=== PATIENT | female | born 1950 | race Caucasian/White ===

== ENCOUNTER 2017-01-27 11:46 | Emergency (ER) | payer MEDICARE ==
--- NOTE | 2017-01-27 13:09 | RAD ---
HISTORY: Low back pain COMPARISONS: None TECHNIQUE: Multiple contiguous axial CT scans were obtained of the lumbar spine without intravenous contrast, with coronal and sagittal multiplanar reformations. FINDINGS: SPINAL CANAL: Evaluation of the central canal is limited on CT technique; however, there is no obvious canalicular mass or epidural hemorrhage. ALIGNMENT: The alignment is normal. VERTEBRAL BODIES: There is mild anterolateral marginal osteophyte formation. There are sclerotic reactive endplate changes at L5-S1 JOINTS: There is facet hypertrophic change most pronounced at L4-L5 and L5-S1 MUSCULATURE: Unremarkable INTERVERTEBRAL DISCS: There is diffuse loss of intervertebral disc height throughout the spine. Vacuum phenomenon is noted at L5-S1 AXIAL IMAGES: T12-L1: There is no osseous neural foraminal narrowing or central canal stenosis. L1-L2: There is no osseous neural foraminal narrowing or central canal stenosis. L2-L3: There is no osseous neural foraminal narrowing or central canal stenosis. L3-L4: There is no osseous neural foraminal narrowing or central canal stenosis. L4-L5: There is no osseous neural foraminal narrowing or central canal stenosis. L5-S1: There is vacuum phenomenon within a broad-based central and right paracentral disc extrusion measuring approximately 1.3 cm in craniocaudal dimension and 0.6 cm in depth. There is moderate bilateral neural foraminal narrowing. There is no osseous central canal stenosis. SOFT TISSUES: The visualized soft tissues of the abdomen are unremarkable. OTHER: None IMPRESSION: DEGENERATIVE DISC DISEASE WITH A RIGHT-SIDED DISC EXTRUSION AT L5-S1. THERE IS NEURAL FORAMINAL NARROWING AT L5-S1. THERE IS NO OSSEOUS CENTRAL CANAL STENOSIS.
[2017-01-27 13:20] LABS: Hematocrit 37 % (35-47); Hemoglobin 12.7 g/dl (12.0-16.0); Mean Corpuscular HGB Conc 34 g/dl (31-36); Mean Corpuscular Hemoglobin 32 pg (27-31); Mean Corpuscular Volume 93 fL (80-97); Mean Platelet Volume 8 um3 (7.4-10.4); Red Blood Count 3.97 10^6/ul (4.0-5.4); Red Cell Distribution Width 14 % (10.5-15); White Blood Count 4.6 10^3/ul (3.5-10.8)
[2017-01-27 13:22] LABS: Add Diff/Slide Review? Slide Review Added; Comments Flag Yes
[2017-01-27 13:31] LABS: Urine Bacteria 1+ (Absent); Urine Bilirubin Negative (Negative); Urine Glucose Negative (Negative); Urine Nitrite Negative (Negative)
[2017-01-27 13:33] LABS: ALT 80 U/L (7-52); Albumin 4.1 g/dL (3.2-5.2); Alkaline Phosphatase 165 U/L (34-104); BUN/Creatinine Ratio 19.3 (8-20); Blood Urea Nitrogen 11 mg/dL (6-24); CO2 Carbon Dioxide 22 mmol/L (22-32); Calcium 9.4 mg/dL (8.6-10.3); Chloride 100 mmol/L (101-111); EGFR African American 135.7 (>60); EGFR Non-African American 105.5 (>60); Globulin 3.3 g/dL (2-4); Glucose 99 mg/dL (70-100); Sodium 133 mmol/L (133-145); Total Protein 7.4 g/dL (6.4-8.9)
[2017-01-27] MEDS ORDERED: Ketorolac INJ* 30 MG/ML 1 ML VIAL IM ONE (13:43)
[2017-01-27] MEDS ORDERED: oxyCODONE/Acetamin 5/325 MG* TAB PO ONE (14:32)
[2017-01-27 14:34] LABS: TSH (Thyroid Stimulating Horm) 2.26 mcIU/mL (0.34-5.60)
[2017-01-27 14:37] LABS: Anion Gap 11 mmol/L (2-11)
[2017-01-27 15:16] LABS: Immature Granulocytes 8 % (0-9); Metamyelocytes % 3 % (0-2); Myelocytes % 2 % (0-1); Neutrophil % 60 % (38-83); RBC Morphology Normal (Normal)
--- NOTE | 2017-01-27 15:19 | RAD ---
HISTORY: Back pain COMPARISONS: None TECHNIQUE: Multiple contiguous axial CT scans of the chest were obtained without intravenous contrast. Coronal and sagittal multiplanar reformations are also submitted for review. FINDINGS: The study is limited by the lack of intravenous contrast. This limits evaluation of the solid organs and vasculature. NECK AND THYROID: The lower neck and thyroid are unremarkable. CHEST WALL: There is no lower cervical, axillary, or supraclavicular lymphadenopathy by size criteria. HEART AND PERICARDIUM: The heart is unremarkable. There is a trace pericardial effusion. AORTA AND PULMONARY VASCULATURE: The aorta and pulmonary vasculature are normal. MEDIASTINUM: There is no mediastinal lymphadenopathy by size criteria. FANNY: There is no hilar lymphadenopathy by size criteria. AIRWAY AND ESOPHAGUS: The airway is unremarkable, without endobronchial filling defect. The esophagus is grossly normal. LUNG PARENCHYMA: There is centrilobular edematous change. There is an irregular nodule of the right lower lobe measuring 2.5 x 2.5 x 2.9 cm in size. PLEURA: No pleural abnormalities are noted. UPPER ABDOMEN: The patient is status post cholecystectomy. There is no appreciable adrenal mass. BONES AND SOFT TISSUES: Mild degenerative changes are noted OTHER: None. IMPRESSION: 1. 2.9 CM NODULE OF THE RIGHT LOWER LOBE. THE IMAGING APPEARANCE IS CONCERNING FOR NEOPLASM. RECOMMEND FURTHER EVALUATION WITH PET/CT AND/OR CONSIDERATION OF TISSUE SAMPLING. 2. EMPHYSEMA. 3. TRACE PERICARDIAL EFFUSION
[2017-01-27 16:07] VITALS: BP 116/55
--- NOTE | 2017-01-27 22:06 | ED ---
Luis Faria Gabriel, scribed for Mckenna Aguirre MD on 01/27/17 at 1221 . Back Pain - HPI Summary HPI Summary: This patient is a 66 year old F presenting to [facility] accompanied by with a chief complaint of lower back pain since 10 days ago. The patient rates the pain 8/10 in severity and radiating down into her thighs and groin. Patient reports CP (2 days ago) in epigastric region and difficulty lifting her legs due to pain in groin. Patient denies fever, chills, CARREON, vision changes, ear pain , neck pain, ABD pain, BM troubles, urinary problems, weakness, numbness, anxiety and depression. - History of Current Complaint Chief Complaint: EDBackInjuryPain Stated Complaint: LOWER BACK PAIN Time Seen by Provider: 01/27/17 12:02 Hx Obtained From: Patient Onset/Duration: Lasting Days - 10, Still Present Onset/Duration: Still Present Timing: Constant Back Pain Location: Is Diffuse Severity Initially: Moderate Severity Currently: Moderate Pain Intensity: 8 Pain Scale Used: 0-10 Numeric Associated Signs And Symptoms: Positive: Negative - fever, chills, CARREON, vision changes, ear pain, neck pain, ABD pain, BM troubles, urinary problems, weakness , numbness, anxiety and depression., Other - CP (2 days ago) in epigastric region and difficulty lifting her legs due to pain in groin - Allergies/Home Medications Allergies/Adverse Reactions: Allergies Allergy/AdvReac Type Severity Reaction Status Date / Time Iodine Allergy Unknown Verified 01/27/17 11:51 Reaction Details Sulfa Antibiotics Allergy Unknown Verified 01/27/17 11:51 Reaction Details PMH/Surg Hx/FS Hx/Imm Hx Previously Healthy: No Cardiovascular History: Reports: Hx Atrial Fibrillation, Hx Supraventricular Ventricular Tachycardia Denies: Hx Angina Respiratory History: Denies: Hx Asthma GI History: Reports: Hx Gall Bladder Disease - cholecystectomy Sensory History: Reports: Hx Contacts or Glasses Opthamlomology History: Reports: Hx Contacts or Glasses - Surgical History Surgery Procedure, Year, and Place: CHOLECYSTECTOMY Infectious Disease History: No Infectious Disease History: Denies: Traveled Outside the [place] in Last 30 Days - Family History Known Family History: Positive: Respiratory Disease - father - emphysema, Other - mother - cva - Social History Alcohol Use: Occasionally Alcohol Amount: about 3 times a week Hx Substance Use: No Substance Use Type: Reports: None Hx Tobacco Use: Yes Smoking Status (MU): Light Every Day Tobacco Smoker Type: Cigarettes Length of Time of Smoking/Using Tobacco: 45 years Have You Smoked in the Last Year: Yes Review of Systems Negative: Fever, Chills Eyes: Negative - vision changes Negative: Blurred Vision Negative: Ear Ache Positive: Chest Pain - 2 dahys prior that resolved Gastrointestinal: Negative - BM trouble Negative: Abdominal Pain Negative: dysuria, hematuria Musculoskeletal: Negative - neck pain Positive: Other - back pain Negative: Headache, Weakness, Numbness Negative: Anxious, Depressed All Other Systems Reviewed And Are Negative: No Physical Exam - Summary Physical Exam Summary: Appearance: Alert, conversive, nontoxic appearing Skin: Warm, dry, no mottling, no rashes, no contusions HEENT: EOMI, PERRL, moist mucous membranes Neck: supple Supraclavicular node on the right side it is hard and non-mobile Spine: No midline tenderness, step offs, or ecchymosis Respiratory: Clear to auscultation, breath sounds present, no rales, no rhonchi , no wheezes Cardiovascular: RRR, pulses are symmetrical in both lower and upper extremities Abdomen: Soft, non-tender Bowel Sounds: Present Musculoskeletal: No CVA tenderness, no obvious deformity, moving all extremities in a grossly normal manner Neurological: A&Ox3, CN II-XII Intact, moving all extremities symmetrically Psychiatric: Normal affect and mood Triage Information Reviewed: Yes Vital Signs On Initial Exam: Initial Vitals Temp Pulse Resp BP Pulse Ox 99.0 F 77 16 128/63 97 01/27/17 11:51 01/27/17 11:51 01/27/17 11:51 01/27/17 11:51 01/27/17 11:51 Vital Signs Reviewed: Yes - Milena Coma Scale Coma Scale Total: 14 Diagnostics - Vital Signs Vital Signs Temp Pulse Resp BP Pulse Ox 01/27/17 11:51 99.0 F 77 16 128/63 97 - Laboratory Lab Results: Lab Results 01/27/17 01/27/17 01/27/17 Range/Units 13:05 13:05 13:05 WBC 4.6 (3.5-10.8) 10^3/ul RBC 3.97 L (4.0-5.4) 10^6/ul Hgb 12.7 (12.0-16.0) g/dl Hct 37 (35-47) % MCV 93 (80-97) fL MCH 32 H (27-31) pg MCHC 34 (31-36) g/dl RDW 14 (10.5-15) % Plt Count 222 (150-450) 10^3/ul MPV 8 (7.4-10.4) um3 Immature Gran % (Auto) 8 (0-9) % Neut % (Auto) 75.6 (38-83) % Lymph % (Auto) 15.7 L (25-47) % [place] % (Auto) 7.3 (1-9) % Eos % (Auto) 0.3 (0-6) % Baso % (Auto) 1.1 (0-2) % Absolute Neuts (auto) 3.5 (1.5-7.7) 10^3/ul Absolute Lymphs (auto) 0.7 L (1.0-4.8) 10^3/ul Absolute Monos (auto) 0.3 (0-0.8) 10^3/ul Absolute Eos (auto) 0 (0-0.6) 10^3/ul Absolute Basos (auto) 0.1 (0-0.2) 10^3/ul Absolute Nucleated RBC 0.02 10^3/ul Neutrophils % 60 (38-83) % Band Neutrophils % 3 (0-8) % Lymphocytes % 21 L (25-47) % Monocytes % 9 (0-13) % Basophils % 2 (0-2) % Metamyelocytes % 3 H (0-2) % Myelocytes % 2 H (0-1) % Nucleated RBC % 0.5 Normal RBC Morphology Normal (Normal) Sodium 133 (133-145) mmol/L Potassium TNP Chloride 100 L (101-111) mmol/L Carbon Dioxide 22 (22-32) mmol/L Anion Gap 11 (2-11) mmol/L BUN 11 (6-24) mg/dL Creatinine 0.57 (0.51-0.95) mg/dL Est GFR ( Amer) 135.7 (>60) Est GFR (Non-Af Amer) 105.5 (>60) BUN/Creatinine Ratio 19.3 (8-20) Glucose 99 (70-100) mg/dL Calcium 9.4 (8.6-10.3) mg/dL Magnesium TNP Total Bilirubin 0.70 (0.2-1.0) mg/dL AST TNP ALT 80 H (7-52) U/L Alkaline Phosphatase 165 H (34-104) U/L Total Protein 7.4 (6.4-8.9) g/dL Albumin 4.1 (3.2-5.2) g/dL Globulin 3.3 (2-4) g/dL Albumin/Globulin Ratio 1.2 (1-3) TSH 2.26 (0.34-5.60) mcIU/mL Urine Color Yellow Urine Appearance Clear Urine pH 5.0 (5-9) Ur Specific [place] 1.006 L (1.010-1.030) Urine Protein Negative (Negative) Urine Ketones Trace H (Negative) Urine Blood 1+ H (Negative) Urine Nitrate Negative (Negative) Urine Bilirubin Negative (Negative) Urine Urobilinogen Negative (Negative) Ur Leukocyte Esterase Negative (Negative) Urine WBC (Auto) Trace(0-5/hpf) (Absent) Urine RBC (Auto) Trace(0-2/hpf) (Absent) Ur Squamous Epith Cells Present H (Absent) Urine Bacteria 1+ H (Absent) Urine Glucose Negative (Negative) Result Diagrams: 01/27/17 13:05 01/27/17 13:05 Lab Statement: Any lab studies that have been ordered have been reviewed, and results considered in the medical decision making process. - CT CT L-spine CT Interpretation Completed By: Radiologist - DEGENERATIVE DISC DISEASE WITH A RIGHT-SIDED DISC EXTRUSION AT L5-S1. THERE IS NEURAL FORAMINAL NARROWING AT L5- S1. THERE IS NO OSSEOUS CENTRAL CANAL STENOSIS. ED physician has reviewed this radiology report and agrees. CT Chest CT Interpretation Completed By: Radiologist - 1. 2.9 CM NODULE OF THE RIGHT LOWER LOBE. THE IMAGING APPEARANCE IS CONCERNING FOR NEOPLASM. RECOMMEND FURTHER EVALUATION WITH PET/CT AND/OR CONSIDERATION OF TISSUE SAMPLING. 2. EMPHYSEMA. 3. TRACE PERICARDIAL EFFUSION ED physician has reviewed this report and agrees. Re-Evaluation - Re-Evaluation First Eval Re-Evaluation Time: 14:24 Change: Unchanged - Pt is requesting something stronger than oxycodone for her pain. I told her I discussed her care with her PCP and that they agreed to manage her pain on outpatient basis in their office. I also recommended continuing current pain mediation but reducing the Tylenol intake due to high LFTs Back Pain Course/Dx - Course Assessment/Plan: This patient is a 66 year old F presenting to [facility] accompanied by with a chief complaint of lower back pain since [address] L-spine reveals, per radiologist, DEGENERATIVE DISC DISEASE WITH A RIGHT-SIDED DISC EXTRUSION AT L5-S1. THERE IS NEURAL. FORAMINAL NARROWING AT L5 -S1. THERE IS NO OSSEOUS CENTRAL CANAL STENOSIS. Patient was seen for AFIB around hospital for special care and was admitted. Her PCP has given her oxycodone and Tylenol for pain. Her PCP was worried about possible cancer do to the chronic smoking. We reviewed all her lab results and will discharge her home after her Chest CT. Chest CT reveals 1. 2.9 CM NODULE OF THE RIGHT LOWER LOBE. THE IMAGING APPEARANCE IS CONCERNING FOR. NEOPLASM. RECOMMEND FURTHER EVALUATION WITH PET/CT AND/OR CONSIDERATION OF TISSUE. SAMPLING. 2. EMPHYSEMA. 3. TRACE PERICARDIAL EFFUSION. Test results with no significant abnormalities except for an elevated LFTs. There is a chance the amount of Tylenol she is taking for pain is causing this. It was recommended she lower her intake of Tylenol. In the ED course the patient was given Percocet and Toradol for pain. We discussed patient care with Dr. Broussard, the patients PCP and they recommend we do the CT Chest and that they will address her chronic pain in her office. Patient will be discharged with follow up from Dr. Broussard. The patient is agreeable with this plan. - Diagnoses Provider Diagnoses: Back pain, Lung nodule - Provider Notifications Discussed Care Of Patient With: Carleen Broussard Time Discussed With Above Provider: 13:52 Instructed by Provider To: Other - We discussed patient care with Dr. Broussard, the patients PCP and they recommend we do the CT Chest. They also stated that they will address her chronic pain during her next appointment. Discharge - Discharge Plan Condition: Stable Disposition: HOME Patient Education Materials: Pulmonary Nodules (ED), Back Pain (ED) Referrals: Carleen Broussard MD [Primary Care Provider] - Additional Instructions: Please follow up with Dr. Broussard. Please call for an appointment. Take pain medications as previously instructed. Please decrease the amount of tylenol you are taking as your LFTs were slightly elevated. REturn if worse or any new symptoms. The CT showed a lung nodule to the right lower lobe. You need to discuss with Dr. Broussard for further evaluation and studies. The documentation as recorded by the Luis galvan Gabriel accurately reflects the service I personally performed and the decisions made by me, Mckenna Aguirre MD.
== END 2017-01-27 16:07 | disposition home or self-care (01) ==
LOC: ED 11:46
DX: M54.5 Low back pain (principal); R07.9 Chest pain, unspecified; R91.1 Solitary pulmonary nodule; F17.210 Nicotine dependence, cigarettes, uncomplicated; Z86.79 Personal history of other diseases of the circulatory system; Z90.49 Acquired absence of other specified parts of digestive tract; J43.9 Emphysema, unspecified
CPT/HCPCS: 36415; 71250; 72131; 80053; 81003; 81015; 84443; 85025; 87086; 99282; A9270-GY; J1885

== ENCOUNTER 2017-02-26 12:12 | Emergency (ER) | payer MEDICARE ==
[2017-02-26 13:19] LABS: INR 1.23 (0.77-1.02)
[2017-02-26 13:27] LABS: EGFR Non-African American 92.3 (>60)
[2017-02-26 15:27] LABS: Monocytes % 4 % (0-13); Tear Drop Cells 1+
[2017-02-26 15:32] LABS: Hematocrit 28 % (35-47); Hemoglobin 9.4 g/dl (12.0-16.0); Mean Corpuscular HGB Conc 34 g/dl (31-36); Mean Corpuscular Hemoglobin 32 pg (27-31); Mean Corpuscular Volume 94 fL (80-97); Platelet Count 36 10^3/ul (150-450); Red Blood Count 2.94 10^6/ul (4.0-5.4); Red Cell Distribution Width 15 % (10.5-15); White Blood Count 3.9 10^3/ul (3.5-10.8)
[2017-02-26 15:33] LABS: Mean Platelet Volume 9 um3 (7.4-10.4)
[2017-02-26] MEDS ORDERED: NS 0.9% 1000 ML* 2,000 ML IV ONE (17:10)
[2017-02-26 19:28] VITALS: BP 112/58
--- NOTE | 2017-02-27 10:51 | ED ---
Viktoriya Faria Julia, scribed for Mamadou Finnegan MD on 02/26/17 at 1553 . Shortness of Breath - HPI Summary HPI Summary: This patient is a 66 year old F presenting to [facility] accompanied by with a chief complaint fatigue and SOB since this morning. The patient rates the pain 3/10 in severity. reports patient has been weak, and disoriented. Patient had similar symptoms after blood transfusion on 02/24/16. - History of Current Complaint Chief Complaint: EDWeakness Time Seen by Provider: 02/26/17 12:41 Hx Obtained From: Patient, Family/Varnish Inspector Onset/Duration: Lasting Hours Timing: Constant Dyspnea At: Rest - Allergy/Home Medications Allergies/Adverse Reactions: Allergies Allergy/AdvReac Type Severity Reaction Status Date / Time Iodine Allergy Unknown Verified 02/22/17 10:11 Reaction Details Sulfa Antibiotics Allergy Unknown Verified 02/22/17 10:11 Reaction Details Home Medications: Home Medications Dexamethasone TAB* [Decadron TAB*] 4 mg PO DAILY 02/26/17 [History Confirmed 09/06] Enoxaparin(*) [Lovenox(*)] 70 mg SUBCUT DAILY 02/26/17 [History Confirmed ] Ondansetron [Zofran Odt] 4 mg PO Q4H PRN 02/26/17 [History Confirmed 02/26/17] PMH/Surg Hx/FS Hx/Imm Hx Endocrine/Hematology History: Denies: Hx Diabetes Cardiovascular History: Reports: Hx Atrial Fibrillation Denies: Hx Angina, Hx Hypertension, Hx Pacemaker/ICD Respiratory History: Reports: Other Respiratory Problems/Disorders - LUNG CA Denies: Hx Asthma GI History: Reports: Hx Gall Bladder Disease - cholecystectomy History: Denies: Hx Renal Disease Sensory History: Reports: Hx Contacts or Glasses Denies: Hx Hearing Aid Opthamlomology History: Reports: Hx Contacts or Glasses Psychiatric History: Denies: Hx Panic Disorder - Cancer History Cancer Type, 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 01/27/15 - [facility] LINQ RECORDER- @ [facility] W/ DR SMITH - WHICH DOWNLOADS EVERY EVENING/NIGHT BUT IS CHECKING ( W/CARDIOLOGY) MORNING OF MRI TO BE SURE IT DID DO DOWNLOAD. TUBAL LIGATION Infectious Disease History: No Infectious Disease History: Denies: Traveled Outside the [place] in Last 30 Days - Family History Known Family History: Positive: Respiratory Disease - father - emphysema, Other - mother - cva - Social History Alcohol Use: None Alcohol Amount: about 3 times a week Hx Substance Use: No Substance Use Type: Reports: None Hx Tobacco Use: Yes Smoking Status (MU): Former Smoker Type: Cigarettes Length of Time of Smoking/Using Tobacco: 45 years Have You Smoked in the Last Year: Yes Review of Systems Positive: Fatigue Positive: Shortness Of Breath Neurological: Other - disoriented All Other Systems Reviewed And Are Negative: Yes Physical Exam - Summary Physical Exam Summary: Appearance: The patient is well-nourished in no acute distress and in no acute pain. Skin: The skin is warm and dry. Skin is pale.. HEENT: The head is normocephalic and atraumatic. The pupils are equal and reactive. The conjunctivae are clear and without drainage. Conjunctivae are pale. Nares are patent and without drainage. Mouth reveals moist mucous membranes and the throat is without erythema and exudate. The external ears are intact. The ear canals are patent and without drainage. The tympanic membranes are intact. Neck: the neck is supple with full range of motion and non-tender. There are no carotid bruits. There is no neck vein distension. Respiratory: Chest is non-tender. Lungs are clear to auscultation and breath sounds are symmetrical and equal. Cardiovascular: Heart is regular rate and rhythm. There is no murmur or rub auscultated. There is no peripheral edema and pulses are symmetrical and equal. Abdomen: The abdomen is soft and non-tender. There are normal bowel sounds heard in all four quadrants and there is no organomegaly palpated. Musculoskeletal: There is no back tenderness noted. Extremities are non-tender with full range of motion. There is good capillary refill. There is no peripheral edema or calf tenderness elicited. Neurological: Patient is alert and oriented to person, place and time. The patient has symmetrical motor strength in all four extremities. Cranial nerves are grossly intact. Deep tendon reflexes are symmetrical and equal in all four extremities. Psychiatric: The patient has an appropriate affect and does not exhibit any anxiety or depression. Triage Information Reviewed: Yes Vital Signs On Initial Exam: Initial Vitals Temp Pulse Resp BP Pulse Ox 98.8 F 71 14 72/48 99 02/26/17 12:34 02/26/17 12:34 02/26/17 12:34 02/26/17 12:34 02/26/17 12:34 Vital Signs Reviewed: Yes Diagnostics - Vital Signs Vital Signs Temp Pulse Resp BP Pulse Ox 02/26/17 13:30 67 9 95/53 96 02/26/17 13:17 66 8 88/56 96 02/26/17 13:04 67 10 91/51 97 02/26/17 12:34 98.8 F 71 14 72/48 99 - Laboratory Lab Results: Lab Results 02/26/17 02/26/17 02/26/17 Range/Units 12:50 12:50 12:50 INR (Anticoag Therapy) 1.23 H (0.77-1.02) APTT 27.1 (26.0-36.3) seconds Sodium 133 (133-145) mmol/L Potassium 4.0 (3.5-5.0) mmol/L Chloride 96 L (101-111) mmol/L Carbon Dioxide 28 (22-32) mmol/L Anion Gap 9 (2-11) mmol/L BUN 18 (6-24) mg/dL Creatinine 0.64 (0.51-0.95) mg/dL Est GFR ( Amer) 118.7 (>60) Est GFR (Non-Af Amer) 92.3 (>60) BUN/Creatinine Ratio 28.1 H (8-20) Glucose 108 H (70-100) mg/dL Calcium 9.3 (8.6-10.3) mg/dL Total Bilirubin 1.20 H (0.2-1.0) mg/dL AST 95 H (13-39) U/L ALT 38 (7-52) U/L Alkaline Phosphatase 414 H (34-104) U/L Total Protein 6.1 L (6.4-8.9) g/dL Albumin 3.4 (3.2-5.2) g/dL Globulin 2.7 (2-4) g/dL Albumin/Globulin Ratio 1.3 (1-3) Blood Type A Positive Antibody Screen Negative Result Diagrams: 02/26/17 13:31 02/26/17 12:50 Lab Statement: Any lab studies that have been ordered have been reviewed, and results considered in the medical decision making process. - EKG 12:49 Cardiac Rate: NL EKG Rhythm: Sinus Rhythm - at 69 BPM Course/Dx - Course Course Of Treatment: Ms. Rodriges presented C/O severe fatigue which is the way she felt a few days ago when her Hgb was 6 and she was transfused. Today her Hgb was 9 and I could not find a reason for her profound fatigue aside from dehydration. I sopke with Dr. Flores who wanted her to get IV NS and try to go home so that she could start chemo tomorrow as scheduled. He will reevaluate her tomorrow. - Diagnoses Provider Diagnoses: Dehydration - Physician Notifications Discussed Care of Patient With: Napoleon Flores Time Discussed With Above Provider: 16:38 Instructed by Provider To: Other - provide fluids and discharge Discharge - Discharge Plan Condition: Stable Disposition: HOME Patient Education Materials: Dehydration (ED) Referrals: Carleen Broussard MD [Primary Care Provider] - Additional Instructions: Patient is instructed to follow up with Dr. Flores tomorrow. RETURN TO THE EMERGENCY DEPARTMENT FOR CHANGING OR WORSENING SYMPTOMS. The documentation as recorded by the Viktoriya galvan Julia accurately reflects the service I personally performed and the decisions made by me, Mamadou Finnegan MD.
== END 2017-02-26 19:27 | disposition home or self-care (01) ==
LOC: ED 12:12
DX: E86.0 Dehydration (principal); Z87.891 Personal history of nicotine dependence; Z88.2 Allergy status to sulfonamides
CPT/HCPCS: 36415; 80053; 84484; 85025; 85610; 85730; 86850; 86900; 86901; 93005; 96360; 99283

== ENCOUNTER → 2017-03-03 10:06 | Day surgery (SDC) | payer MEDICARE ==
[~2017-03-03 10:06] MED LIST: Flumazenil* 0.1 MG/ML 5 ML MDV ONE; Heparin 2 UNITS/ML IVPREMIX* 2,000 ML IV ONE; Iodixanol* (CONTRAST) 320 MG/ML 100 ML SDV ONE; Iohexol 350 (CONTRAST) 200 ML MDV IV ONE; Lidocaine 1% INJ* 10 MG/ML 30 ML SDV ONE; Midazolam* 1 MG/ML 10 ML VIAL (10 MG) ONE; Naloxone* 0.4 MG/ML 1 ML VIAL ONE; fentaNYL* 50 MCG/ML 2 ML VIAL (100 MCG VIAL) ONE
--- NOTE | 2017-03-03 14:53 | PN ---
Progress Note - Progress Note Date of Service: 03/03/17 Note: Date of Service: 03/03/17 Patient s/p IVC fitler placement from left CFV. No pain complaints. Afebrile, VSS (patient is hypotensive at baseline since presentation this morning) NAD, AAO x 3 Right groin access site is soft, nontender Dressing is CDI No belly pain to palpation 66 yof s/p IVC filter placement. Plan: 1. Okay for discharge. 2. Anticoagulation is advised if medically it is safe. 3. Please contact Interventional Radiology for filter removal when the filter is no longer indicated.
== END | disposition home or self-care (01) ==
LOC: CHICATH 10:06
PROVIDERS: ATTEND Radiology Diagnostic Radiology
DX: C77.0 Secondary and unspecified malignant neoplasm of lymph nodes of head, face and neck (principal); C79.51 Secondary malignant neoplasm of bone; C34.91 Malignant neoplasm of unspecified part of right bronchus or lung; I26.99 Other pulmonary embolism without acute cor pulmonale; J44.9 Chronic obstructive pulmonary disease, unspecified; F17.200 Nicotine dependence, unspecified, uncomplicated; I48.91 Unspecified atrial fibrillation; Z79.01 Long term (current) use of anticoagulants; Z88.6 Allergy status to analgesic agent; Z88.2 Allergy status to sulfonamides
CPT/HCPCS: 37191; 76937; 99156; 99157; J1644; J2250; J2310; J3010

== ENCOUNTER 2017-03-06 10:23 | Emergency (ER) | payer MEDICARE ==
--- OUTSIDE RECORDS SUMMARY | 2017-03-06 10:30 | XMS REPORT ---
:1950 External Reference #:[id number] Author Organization [employer] [facility] Address [address] [address] Phone [phone] Care Team Providers Name Role Phone Carleen Broussard MD Primary Care Physician Unavailable Payers Type Date Identification Numbers Payment Provider Subscriber Health Maintenance Policy Number: Medicare Blue Ppo Reggie Joy [facility] ([facility]) [id number] Group Number: [id number] [address] [address] PayID: [id number] [place] [address] Problems Date Description Provider Status Onset: 09/03/2015 Paroxysmal atrial fibrillation Jonathan Wadsworth M.D. Active Onset: 09/03/2015 Syncope Jonathan Wadsworth M.D. Active Family History Date Family Member(s) Problem(s) Comments General Cancer Brother -- 64 Head and neck thyroid cancer, in remission Posterior circulation strokes Large patent foraman ovale Parathyroid Adenoma Father due to Heart () Failure Father Emphysema Onset: (age 82 Mother Stroke six years post Years) CVA Siblings 4 1 sister and 3 brothers. 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 Cigarette Use Light tobacco smoker (10 or fewer cigarettes/day) ETOH Use Denies alcohol use Recreational Drug Use Denies Drug Use Smoking Patient is a former smoker Daily Caffeine Half-caf coffee one cup on average daily Exercise Type/Frequency Does not exercise Allergies, Adverse Reactions, Alerts Date Description Reaction Status Severity Comments 02/06/2015 Sulfa Antibiotics Febrile active 02/06/2015 IV Dye Hives active IV iodine 01/30/2017 Iodine active Medications Medication Date Status Form Strength Qnty SIG Indications Ordering Provider Toprol XL 12/26 Active Tablets ER 25mg 90tab 1/2 tab po 24HR s bid Alexi Wadsworth, (stopped M.D. 02/27/17) Multaq Active Tablets 400mg 60tab 1 by mouth Seema /0000 s twice a day Louise Cisneros Nasacort Active Aerosol 55mcg/Act 1 spray Unknown Allergy 24HR /0000 both nares once daily as needed Oxycodone HCL Active Tabs 2 q4 hours Unknown /0000 Colace Active Capsules 100mg 1 tab by Unknown /0000 mouth 2-3 times a day as needed Compazine Active Tablets 10mg 1 tab by Unknown /0000 mouth every 6 hours as needed for nausea Diazepam Active Concentrate 5mg/ml Unknown /0000 Famotidine Active Solution 20mg/2ML Unknown /0000 Fentanyl Active Patches 72HR 50mcg/HR one topical Unknown /0000 every 3rd day Lovenox Active Solution 80mg/0.8M use as Unknown /0000 L prescribed twice daily starting on 03/04/17 until 03/07/2017, the night before surgery. do not take on 03/08/2017 am Miralax Active Powder 1/2 cap Unknown /0000 every other day Olanzapine Active Solution Rec 10mg Unknown /0000 Senokot Active Tablets 8.6mg take 2 Unknown /0000 tablets by mouth 1 to 2 times daily Zofran Active Tablets 4mg take 1 by Unknown /0000 mouth twice a day as needed for nausea Xarelto 05/04 Hx Tablets 20mg 30tab 1 by mouth s every day Alexi Wadsworth, - M.D. 02/23 Keflex 01/26 Hx Capsules 500mg 9caps 1 by mouth three times DDominic Wadsworth, - a day for 3 M.D. Magnesium Oxide Hx Tablets 400mg 1 by mouth Unknown /0000 bid (pt no - longer 01/16 taking Potassium Hx Capsules ER 10Meq 1 by mouth Unknown Chloride ER /0000 every day - (pt no 01/16 taking) Tylenol 0000 Hx Tablets 325mg 2 tabs qid Unknown /0000 prn - 02/05 Acetaminophen 00/00 Hx Tablets 325mg 2 tablets Unknown /0000 by mouth every 6 hours as needed for pain/fever Vital Signs Date Vital Result Comment 02/28/2017 Height 62.25 inches 5'2.25" Heart Rate 66 /min BP Systolic Sitting 98 mmHg lue reg cuff BP Diastolic Sitting 40 mmHg lue reg cuff Respiratory Rate 18 /min Ejection Fraction 55-60% echo 01/06/15 02/21/2017 Height 62.25 inches 5'2.25" Weight 108.00 lb Heart Rate 76 /min BP Systolic 92 mmHg BP Diastolic 60 mmHg Respiratory Rate 16 /min Body Temperature 99.1 F BMI (Body Mass Index) 19.6 kg/m2 01/30/2017 Height 62.25 inches 5'2.25" Weight 112.00 lb Heart Rate 76 /min BP Systolic Sitting 92 mmHg BP Diastolic Sitting 56 mmHg Respiratory Rate 14 /min O2 % BldC Oximetry 95 % BMI (Body Mass Index) 20.3 kg/m2 Neck Circumference in inches 12.25 01/18/2017 Height 62.25 inches 5'2.25" Weight 115.00 lb No shoes Heart Rate 76 /min BP Systolic Sitting 120 mmHg Rue reg cuff BP Diastolic Sitting 70 mmHg Rue reg cuff BP Systolic Standing 112 mmHg Rue reg cuff BP Diastolic Standing 72 mmHg Rue reg cuff Respiratory Rate 16 /min BMI (Body Mass Index) 20.9 kg/m2 Ejection Fraction 55-60% 01/06/2015-echo 01/11/2017 Height 63 inches 5'3" Weight 116.00 lb without shoes Heart Rate 86 /min BP Systolic Sitting 90 mmHg Lue reg cuff BP Diastolic Sitting 60 mmHg Lue reg cuff BP Systolic Standing 92 mmHg Lue reg cuff BP Diastolic Standing 66 mmHg Lue reg cuff Respiratory Rate 17 /min BMI (Body Mass Index) 20.5 kg/m2 Ejection Fraction 55-60% 01/06/2015-echo 09/02/2016 Height 63 inches 5'3" Weight 119.00 lb with sandals Heart Rate 78 /min BP Systolic Sitting 122 mmHg Rue reg cuff BP Diastolic Sitting 72 mmHg Rue reg cuff BP Systolic Standing 120 mmHg Rue reg cuff BP Diastolic Standing 70 mmHg Rue reg cuff Respiratory Rate 15 /min BMI (Body Mass Index) 21.1 kg/m2 Ejection Fraction 55-60% 01/06/2015-echo 03/23/2016 Height 63 inches 5'3" Weight 117.00 lb w/o shoes Heart Rate 76 /min irreg BP Systolic Sitting 122 mmHg Rue, reg cuff BP Diastolic Sitting 76 mmHg Rue, reg cuff BP Systolic Standing 112 mmHg Rue BP Diastolic Standing 70 mmHg Rue Respiratory Rate 16 /min BMI (Body Mass Index) 20.7 kg/m2 Ejection Fraction 55-60% as of 01/06/15 echo 09/03/2015 Height 63 inches 5'3" Weight 117.00 lb with sandal s Heart Rate 66 /min BP Systolic Sitting 122 mmHg Ra reg cuff BP Diastolic Sitting 72 mmHg Ra reg cuff BP Systolic Standing 118 mmHg Ra reg cuff BP Diastolic Standing 74 mmHg Ra reg cuff Respiratory Rate 16 /min BMI (Body Mass Index) 20.7 kg/m2 Ejection Fraction 55-60% date 01/06/15 ECHO 06/11/2015 Height 63 inches 5'3" Weight 117.00 lb w/o shoes Heart Rate 80 /min reg BP Systolic Sitting 100 mmHg Lue, reg cuff BP Diastolic Sitting 74 mmHg Lue, reg cuff BP Systolic Standing 104 mmHg Lue BP Diastolic Standing 70 mmHg Lue Respiratory Rate 18 /min BMI (Body Mass Index) 20.7 kg/m2 Ejection Fraction 55-60% As of 01/06/15 echo 05/06/2015 Height 63 inches 5'3" Weight 118.00 lb w/o shoes Heart Rate 86 /min BP Systolic Sitting 92 mmHg Rue, reg cuff BP Diastolic Sitting 60 mmHg Rue, reg cuff BP Systolic Standing 96 mmHg Rue BP Diastolic Standing 64 mmHg Rue Respiratory Rate 18 /min BMI (Body Mass Index) 20.9 kg/m2 Ejection Fraction 55-60% as of 01/06/15 echo 02/06/2015 Height 63 inches 5'3" Weight 119.00 lb with shoes Heart Rate 88 /min BP Systolic Sitting 100 mmHg Ra reg cuff BP Diastolic Sitting 70 mmHg Ra reg cuff BP Systolic Standing 100 mmHg Ra reg cuff BP Diastolic Standing 68 mmHg Ra reg cuff Respiratory Rate 17 /min BMI (Body Mass Index) 21.1 kg/m2 Ejection Fraction 55-60% date 01/06/15 ECHO Results Test Date Test Result H/L Range Note Laboratory test 02/10/2017 Point of Care 112 mg/dL High 70-100 1 finding Glucose Laboratory test 02/01/2017 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 Process 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 SEE RESULT BELOW 2 finding CBC Auto Diff 09/04/2015 White Blood Count 5.6 10^3/uL 3.5-10.8 Red Blood Count 4.52 10^6/uL 4.0-5.4 Hemoglobin 13.9 g/dL 12.0-16.0 Hematocrit 42 % 35-47 Mean Corpuscular Volume 92 fL 80-97 Mean Corpuscular Hemoglobin 31 pg 27-31 Mean Corpuscular HGB Conc 33 g/dL 31-36 Red Cell Distribution Width 15 % 10.5-15 Platelet Count 257 10^3/uL 150-450 Mean Platelet Volume 8 um3 7.4-10.4 Abs Neutrophils 3.3 10^3/uL 1.5-7.7 Abs Lymphocytes 1.8 10^3/uL 1.0-4.8 Abs Monocytes 0.4 10^3/uL 0-0.8 Abs Eosinophils 0 10^3/uL 0-0.6 Abs Basophils 0.1 10^3/uL 0-0.2 Abs Nucleated RBC 0.01 10^3/uL Granulocyte % 58.3 % 38-83 Lymphocyte % 32.6 % 25-47 Monocyte % 7.5 % 1-9 Eosinophil % 0.7 % 0-6 Basophil % 0.9 % 0-2 Nucleated Red Blood Cells % 0.1 Basic Metabolic Panel 09/04/2015 Sodium 139 mmol/L 133-145 Potassium 4.5 mmol/L 3.5-5.0 Chloride 105 mmol/L 101-111 Co2 Carbon Dioxide 30 mmol/L 22-32 Anion Gap 4 mmol/L 2-11 Glucose 92 mg/dL 70-100 Blood Urea Nitrogen 12 mg/dL 6-24 Creatinine 0.70 mg/dL 0.51-0.95 BUN/Creatinine Ratio 17.1 8-20 Calcium 9.6 mg/dL 8.6-10.3 Egfr Non- 83.7 >60 Egfr 107.7 >60 3 Laboratory test finding 09/04/2015 Magnesium 2.2 mg/dL 1.9-2.7 1 Account Consultant: [id number] SEE RESULT BELOW Name: REGGIE JOY : [address]: Maricel Guerrero MD Acct: [id number] Unit: [id number] AGE: 66 Location: LAB Re02/01/17 SEX: F Status: REG REF SPEC: [id number] DIONE: 02/01/17-[address] [facility] [address]: Maricel Guerrero MD REQ: [id number] RECD: 02/01/17-1037 STATUS: YUDELKA PARKINSON DR: Gilberto Broussard MD _ ORDERED: FNA-IMG GUID BX, LEVEL 4/2, CYTO ADEQ-1ST P, IMMUNO-FIRST, IMMUNO- ADDL/4 IMMUNO-QUANT The procedure was explained to and understood by the patient. Signed consent was obtained and a time out procedure was performed at the bedside to verify patient identity and biopsy site. Fine needle aspiration biopsy was performed times 2 with a 25 gauge needle on a 0.7 cm right supraclavicular node. Adequacy was assessed by fast stain technique. The procedure was tolerated well without complications. Addendum Signed (signature on file) Keena Gonzalez MD 06/07 1411 FINAL DIAGNOSIS Neck lymph node, right supraclavicular, fine needle aspiration by palpation: -- Malignant- metastatic small cell carcinoma. Comment: The aspirate smear and formalin fixed cell block are amply cellular and demonstrate classic features of small cell neuroendocrine carcinoma including variably discohesive population of small cytologically malignant elements with granular "salt and pepper" chromatin, moderate nuclear pleomorphism, scant cytoplasm, high mitotic and apoptotic rate and extensive nuclear molding. Significant nuclear/cellular streaking artifact is noted. The following immunohistochemical stains are performed on formalin fixed cell block material with appropriate controls. CONTINUED ON NEXT PAGE * ML=Testing performed at Main Lab DEPARTMENT OF PATHOLOGY, [address] [place] [address] Gilberto Silva M.D. 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 Despite the TTF-1 negativity in this case, in this clinical context, a pulmonary primary a cell to be most likely. Dr. Gonzalez has reviewed this case and concurs. A cell block was prepared in the evaluation of this specimen. Smears and cell block reveal similar findings. A. NECK RIGHT - RIGHT NECK NODE FINE NEEDLE ASPIRATION BY PALPATION CLINICAL HISTORY 0.7 cm right supraclavicular node. IMMEDIATE INTERPRETATION Pass 1 2-adequate GROSS DESCRIPTION Fine needle aspiration by palpation x 2 passes with 1 Alcohol fixed slide(s) and 2 needle rinse in formalin for cell block labeled [id number] and [id number]. Signed (signature on file) Gilberto Silva MD 1022 END OF REPORT * ML=Testing performed at Main Lab DEPARTMENT OF PATHOLOGY, [address] [place] [address] Gilberto Silva M.D. Director [facility] # [id number] 3 Because ethnic data is not always readily available, this report includes an eGFR for both -Americans and non- Americans. The National Kidney Disease Education Program (NKDEP) does not endorse the use of the MDRD equation for patients that are not between the ages of 18 and 70, are , have extremes of body size, muscle mass, or nutritional status, or are non- or non-. According to the National Kidney Foundation, irrespective of diagnosis, the stage of the disease is based on the level of kidney function: Stage Description GFR(mL/min/1.73 m(2)) 1 Kidney damage with normal or decreased GFR 90 2 Kidney damage with mild decrease in GFR 60-89 3 Moderate decrease in GFR 30-59 4 Severe decrease in GFR 15-29 5 Kidney failure <15 (or dialysis) Procedures Date CPT Code Description Status 02/08/2017 61497 Implantable Cardio System Loop Recorder Sys Remota Data Completed Acquistio 02/08/2017 27754 Interrogation Dev Loop Recorder Incl Physician Completed Analysis,Rev,Repor 01/31/2017 13206 Diffusing Capacity Completed 01/31/2017 08368 Plethysmography Determination Lung Volumes & Per Completed Airway Resist 01/31/2017 33336 Pulmonary Function><Bronchodil Completed 01/18/2017 14873 EKG Tracing & Interpretation Completed 01/11/2017 54020 EKG Tracing & Interpretation Completed 01/08/2017 30631 Implantable Cardio System Loop Recorder Sys Remota Data Completed Acquistio 01/08/2017 15835 Interrogation Dev Loop Recorder Incl Physician Completed Analysis,Rev,Repor 12/08/2016 86899 Implantable Cardio System Loop Recorder Sys Remota Data Completed Acquistio 12/08/2016 18697 Interrogation Dev Loop Recorder Incl Physician Completed Analysis,Rev,Repor 11/07/2016 78883 Implantable Cardio System Loop Recorder Sys Remota Data Completed Acquistio 11/07/2016 79950 Interrogation Dev Loop Recorder Incl Physician Completed Analysis,Rev,Repor 10/07/2016 28938 Implantable Cardio System Loop Recorder Sys Remota Data Completed Acquistio 10/07/2016 37228 Interrogation Dev Loop Recorder Incl Physician Completed Analysis,Rev,Repor 09/06/2016 43899 Interrogation Dev Loop Recorder Incl Physician Completed Analysis,Rev,Repor 09/06/2016 91101 Implantable Cardio System Loop Recorder Sys Remota Data Completed Acquistio 08/06/2016 92889 Implantable Cardio System Loop Recorder Sys Remota Data Completed Acquistio 08/06/2016 90445 Interrogation Dev Loop Recorder Incl Physician Completed Analysis,Rev,Repor 07/06/2016 44412 Implantable Cardio System Loop Recorder Sys Remota Data Completed Acquistio 07/06/2016 34566 Interrogation Dev Loop Recorder Incl Physician Completed Analysis,Rev,Repor 06/05/2016 80613 Implantable Cardio System Loop Recorder Sys Remota Data Completed Acquistio 06/05/2016 06151 Interrogation Dev Loop Recorder Incl Physician Completed Analysis,Rev,Repor 05/05/2016 02778 Implantable Cardio System Loop Recorder Sys Remota Data Completed Acquistio 05/05/2016 74822 Interrogation Dev Loop Recorder Incl Physician Completed Analysis,Rev,Repor 04/04/2016 02889 Implantable Cardio System Loop Recorder Sys Remota Data Completed Acquistio 04/04/2016 12928 Interrogation Dev Loop Recorder Incl Physician Completed Analysis,Rev,Repor 03/23/2016 23615 EKG Tracing & Interpretation Completed 03/04/2016 30471 Implantable Cardio System Loop Recorder Sys Remota Data Completed Acquistio 03/04/2016 46611 Interrogation Dev Loop Recorder Incl Physician Completed Analysis,Rev,Repor 02/02/2016 46712 Interrogation Dev Loop Recorder Incl Physician Completed Analysis,Rev,Repor 02/02/2016 47318 Implantable Cardio System Loop Recorder Sys Remota Data Completed Acquistio 01/02/2016 31745 Implantable Cardio System Loop Recorder Sys Remota Data Completed Acquistio 01/02/2016 01167 Interrogation Dev Loop Recorder Incl Physician Completed Analysis,Rev,Repor 12/02/2015 97731 Implantable Cardio System Loop Recorder Sys Remota Data Completed Acquistio 12/02/2015 38797 Interrogation Dev Loop Recorder Incl Physician Completed Analysis,Rev,Repor 11/01/2015 33633 Implantable Cardio System Loop Recorder Sys Remota Data Completed Acquistio 11/01/2015 33428 Interrogation Dev Loop Recorder Incl Physician Completed Analysis,Rev,Repor 10/01/2015 87177 Implantable Cardio System Loop Recorder Sys Remota Data Completed Acquistio 10/01/2015 45712 Interrogation Dev Loop Recorder Incl Physician Completed Analysis,Rev,Repor 08/31/2015 95809 Implantable Cardio System Loop Recorder Sys Remota Data Completed Acquistio 08/31/2015 45534 Interrogation Dev Loop Recorder Incl Physician Completed Analysis,Rev,Repor 07/31/2015 42460 Implantable Cardio System Loop Recorder Sys Remota Data Completed Acquistio 07/31/2015 69703 Interrogation Dev Loop Recorder Incl Physician Completed Analysis,Rev,Repor 06/30/2015 90861 Interrogation Dev Loop Recorder Incl Physician Completed Analysis,Rev,Repor 06/30/2015 65126 Implantable Cardio System Loop Recorder Sys Remota Data Completed Acquistio 05/30/2015 68796 Implantable Cardio System Loop Recorder Sys Remota Data Completed Acquistio 05/30/2015 36548 Interrogation Dev Loop Recorder Incl Physician Completed Analysis,Rev,Repor 05/06/2015 11238 EKG Tracing & Interpretation Completed 04/29/2015 44460 Implantable Cardio System Loop Recorder Sys Remota Data Completed Acquistio 04/29/2015 96087 Interrogation Dev Loop Recorder Incl Physician Completed Analysis,Rev,Repor 03/29/2015 55662 Implantable Cardio System Loop Recorder Sys Remota Data Completed Acquistio 03/29/2015 04221 Interrogation Dev Loop Recorder Incl Physician Completed Analysis,Rev,Repor 02/25/2015 75230 Implantable Cardio System Loop Recorder Sys Remota Data Completed Acquistio 02/25/2015 86764 Interrogation Dev Loop Recorder Incl Physician Completed Analysis,Rev,Repor 02/06/2015 76700 EKG Tracing & Interpretation Completed 01/26/2015 20541 Implant Cardiac Loop Recorder Completed 01/06/2015 92484 ECHO Transthorasic Realtime 2D W Doppler & Color Completed [facility] 01/06/2015 71476 Treadmill Interp/Report Only Completed 01/06/2015 65598 Stress Test Supervsn W/Out I/R Completed Encounters Type Date Location Provider CPT E/M Dx Office Visit 02/28/2017 [facility] Jonathan Wadsworth, 87189 I48.0 1:00p [facility] MCorinna R55 Z95.818 Office Visit 02/21/2017 9:45a [facility], [address]291 C34.11 [facility] Tyrese.Alexi Office Visit 01/30/2017 2:00p [facility] [place] [address] R91.1 [facility] F17.210 Office Visit 01/18/2017 8:00a [facility] Jonathan Wadsworth 15418 I48.0 [facility] Louise R55 Z95.818 Office Visit 01/11/2017 9:00a [facility] MIGUEL Gamboa 17906 I48.0 I47.1 Office Visit 09/02/2016 9:00a [facility] Jonathan Wadsworth 77360 R55 MCorinna I48.0 R00.2 Office Visit 03/23/2016 10:30a [facility] [place], [address] I48.0 Childcare Attendant M.DDominic R00.2 Office Visit 09/03/2015 10:00a [facility] Jonathan Wadsworth, 50125 I48.0 [facility] Tyrese.Alexi Z95.818 Office Visit 06/11/2015 9:00a [facility] Jonathan Wadsworth, 47129 I48.0 [facility] M.DDominic Office Visit 05/06/2015 3:00p [facility] [place] [address] I48.0 [facility] FAC Office Visit 02/06/2015 2:15p [facility] Jonathan Wadsworth, 23281 I47.1 [facility] M.DDominic R55 Office Visit 01/26/2015 9:23a [facility] Jontahan Wadsworth, 88942 I47.1 [facility] M.DDominic R55 Office Visit 01/06/2015 4:16p [facility] Jonathan Wadsworth, 91550 R5Nay Xiong.DDominic R00.2 Plan of Care Future Appointment(s):03/03/2017 11:00 am - Nick Qureshi M.D. at [facility] Vascular Medicine [facility]03/08/2017 10:00 am - Jonathan Wadsworth M.D. at [facility] [place]/28/2017 - Jonathan Wadsworth M.D.I48.0 Paroxysmal atrial fibrillationNew Orders:EchocardiogramFollow up:4 [id number] Syncope and vxstzktlJ02.818 Presence of other cardiac implants and grafts
--- OUTSIDE RECORDS SUMMARY | 2017-03-06 10:31 | XMS REPORT ---
:1950 External Reference #:[id number] Author Organization [facility] Address [address] [address] Phone [phone] Care Team Providers Name Role Phone Carleen Broussard MD Primary Care Physician Unavailable Payers Type Date Identification Numbers Payment Provider Subscriber Health Maintenance Policy Number: Medicare Blue Ppo Reggie Joy [facility] ([facility] [place]) [id number] Group Number: [id number] [address] [address] PayID: [id number] [place] [address] Problems Date Description Provider Status Onset: 09/03/2015 [...] Marital Status Lives With 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 day Nasacort / Active Aerosol 55mcg/Act 1 spray Unknown Allergy 24HR 0000 both nares once daily as needed Oxycodone HCL / Active Tabs 2 q4 Unknown 0000 hours Keflex 01/26/ Hx Capsules 500mg 9caps 1 by Jonathan Truong 2014 - mouth Brand, 01/06/ three M.DDominic 2015 times a day for 3 days Magnesium Oxide / Hx Tablets 400mg 1 by Unknown 0000 - mouth bid (pt no 2017 longer taking) Potassium / Hx Capsules 10Meq 1 by Unknown Chloride ER 0000 - ER mouth 01/16/ every day 2016 (pt no longer taking) Tylenol / Hx Tablets 325mg 2 tabs Unknown 0000 - qid prn 2014 Acetaminophen 00/ Hx Tablets 325mg 2 tablets Unknown 0000 by mouth every 6 hours as needed for pain/feve r Vital Signs Date Vital Result Comment 02/21/2017 Height 62.25 inches 5'2.25" Weight 108.00 [...] 1 finding Glucose Laboratory test 02/01/2017 Cytology Non-Back Joiner SEE RESULT BELOW 2 finding CBC Auto [...] finding 09/04/2015 Magnesium 2.2 mg/dL 1.9-2.7 1 Grades 9 Thru 12 Visiting Teacher: [id number] 2 SEE RESULT BELOW Name: REGGIE JOY : [address]: Maricel Guerrero MD Acct: [id number] Unit: [id number] AGE: 66 Location: LAB Re02/01/17 SEX: F Status: REG REF SPEC: [id number] DIONE: 02/01/17-1025 [facility] DR: Maricel Guerrero MD REQ: [id number] RECD: 02/01/17-1038 STATUS: YUDELKA PARKINSON DR: Gilberto Broussard MD _ ORDERED: FNA-IMG GUID BX, LEVEL 4/2, CYTO ADEQ-1ST P, IMMUNO-FIRST, IMMUNO- ADDL/4 IMMUNO-QUANT FINAL DIAGNOSIS Neck lymph node, right supraclavicular, [...] fixed cell block material with appropriate controls. CD56 strong positive Chromogranin negative Synaptophysin positive Pankeratin positive with distinct perinuclear dot pattern TTF-1 negative Ki-67 index greater than 80% The morphologic features and immunohistochemical staining CONTINUED ON NEXT PAGE * ML=Testing performed at Main Lab DEPARTMENT OF PATHOLOGY, [address] [place] [address] Gilberto Silva M.D. 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 Signed (signature on file) Gilberto Silva MD [id number] END OF REPORT * ML=Testing performed at Main Lab DEPARTMENT OF PATHOLOGY, [address] [place] [address] Gilberto Silva M.D. Director [facility] # [id number] 3 Because ethnic data is not always [...] dialysis) Procedures Date CPT Code Description Status 01/31/2017 69300 Diffusing Capacity Completed 01/31/2017 68780 Plethysmography Determination Lung Volumes & Per Completed Airway Resist 01/31/2017 13770 Pulmonary Function><Bronchodil Completed 01/18/2017 98048 EKG Tracing & Interpretation Completed 01/11/2017 81909 EKG Tracing & Interpretation Completed 01/08/2017 75639 Implantable Cardio System Loop Recorder Sys Remota Data Completed Acquistio 01/08/2017 30275 Interrogation Dev Loop Recorder Incl Physician Completed Analysis,Rev,Repor 12/08/2016 82538 Implantable Cardio System Loop Recorder Sys Remota Data Completed Acquistio 12/08/2016 92954 Interrogation Dev Loop Recorder Incl Physician Completed Analysis,Rev,Repor 11/07/2016 23170 Implantable Cardio System Loop Recorder Sys Remota Data Completed Acquistio 11/07/2016 52789 Interrogation Dev Loop Recorder Incl Physician Completed Analysis,Rev,Repor 10/07/2016 99274 Implantable Cardio System Loop Recorder Sys Remota Data Completed Acquistio 10/07/2016 50458 Interrogation Dev Loop Recorder Incl Physician Completed Analysis,Rev,Repor 09/06/2016 72754 Interrogation Dev Loop Recorder Incl Physician Completed Analysis,Rev,Repor 09/06/2016 06289 Implantable Cardio System Loop Recorder Sys Remota Data Completed Acquistio 08/06/2016 04962 Implantable Cardio System Loop Recorder Sys Remota Data Completed Acquistio 08/06/2016 53372 Interrogation Dev Loop Recorder Incl Physician Completed Analysis,Rev,Repor 07/06/2016 33277 Implantable Cardio System Loop Recorder Sys Remota Data Completed Acquistio 07/06/2016 51813 Interrogation Dev Loop Recorder Incl Physician Completed Analysis,Rev,Repor 06/05/2016 28998 Implantable Cardio System Loop Recorder Sys Remota Data Completed Acquistio 06/05/2016 82181 Interrogation Dev Loop Recorder Incl Physician Completed Analysis,Rev,Repor 05/05/2016 90962 Implantable Cardio System Loop Recorder Sys Remota Data Completed Acquistio 05/05/2016 95254 Interrogation Dev Loop Recorder Incl Physician Completed Analysis,Rev,Repor 04/04/2016 87424 Implantable Cardio System Loop Recorder Sys Remota Data Completed Acquistio 04/04/2016 36982 Interrogation Dev Loop Recorder Incl Physician Completed Analysis,Rev,Repor 03/23/2016 49206 EKG Tracing & Interpretation Completed 03/04/2016 96466 Implantable Cardio System Loop Recorder Sys Remota Data Completed Acquistio 03/04/2016 63786 Interrogation Dev Loop Recorder Incl Physician Completed Analysis,Rev,Repor 02/02/2016 97964 Interrogation Dev Loop Recorder Incl Physician Completed Analysis,Rev,Repor 02/02/2016 31082 Implantable Cardio System Loop Recorder Sys Remota Data Completed Acquistio 01/02/2016 08570 Implantable Cardio System Loop Recorder Sys Remota Data Completed Acquistio 01/02/2016 70138 Interrogation Dev Loop Recorder Incl Physician Completed Analysis,Rev,Repor 12/02/2015 76490 Implantable Cardio System Loop Recorder Sys Remota Data Completed Acquistio 12/02/2015 58034 Interrogation Dev Loop Recorder Incl Physician Completed Analysis,Rev,Repor 11/01/2015 69017 Implantable Cardio System Loop Recorder Sys Remota Data Completed Acquistio 11/01/2015 77636 Interrogation Dev Loop Recorder Incl Physician Completed Analysis,Rev,Repor 10/01/2015 85793 Implantable Cardio System Loop Recorder Sys Remota Data Completed Acquistio 10/01/2015 64791 Interrogation Dev Loop Recorder Incl Physician Completed Analysis,Rev,Repor 08/31/2015 66253 Implantable Cardio System Loop Recorder Sys Remota Data Completed Acquistio 08/31/2015 77017 Interrogation Dev Loop Recorder Incl Physician Completed Analysis,Rev,Repor 07/31/2015 08275 Implantable Cardio System Loop Recorder Sys Remota Data Completed Acquistio 07/31/2015 82032 Interrogation Dev Loop Recorder Incl Physician Completed Analysis,Rev,Repor 06/30/2015 04974 Interrogation Dev Loop Recorder Incl Physician Completed Analysis,Rev,Repor 06/30/2015 99942 Implantable Cardio System Loop Recorder Sys Remota Data Completed Acquistio 05/30/2015 26300 Implantable Cardio System Loop Recorder Sys Remota Data Completed Acquistio 05/30/2015 87689 Interrogation Dev Loop Recorder Incl Physician Completed Analysis,Rev,Repor 05/06/2015 37137 EKG Tracing & Interpretation Completed 04/29/2015 22883 Implantable Cardio System Loop Recorder Sys Remota Data Completed Acquistio 04/29/2015 70492 Interrogation Dev Loop Recorder Incl Physician Completed Analysis,Rev,Repor 03/29/2015 97012 Implantable Cardio System Loop Recorder Sys Remota Data Completed Acquistio 03/29/2015 21465 Interrogation Dev Loop Recorder Incl Physician Completed Analysis,Rev,Repor 02/25/2015 81017 Implantable Cardio System Loop Recorder Sys Remota Data Completed Acquistio 02/25/2015 53605 Interrogation Dev Loop Recorder Incl Physician Completed Analysis,Rev,Repor 02/06/2015 80182 EKG Tracing & Interpretation Completed 01/26/2015 12129 Implant Cardiac Loop Recorder Completed 01/06/2015 08104 ECHO Transthorasic Realtime 2D W Doppler & Color Completed Flow [facility] 01/06/2015 88347 Treadmill Interp/Report Only Completed 01/06/2015 06656 Stress Test Supervsn W/Out I/R Completed Encounters Type Date Location Provider CPT E/M Dx Office Visit 01/30/2017 [facility] [place] [address] R91.1 2:[facility] F17.210 Office Visit 01/18/2017 8:00a [facility] Pj Wadsworth [address] I48.0 [facility] Louise R55 Z95.818 Office Visit 01/11/2017 9:00a [facility] MIGUEL Gamboa [address] I48.0 I47.1 Office Visit 09/02/2016 9:00a [facility] Jonathan Wadsworth [address] R55 M.DDominic I48.0 R00.2 Office Visit 03/23/2016 10:30a [facility] Pj Wadsworth [address] I48.0 Corin Gil R00.2 Office Visit 09/03/2015 10:00a [facility] Pj Wadsworth [address] I48.0 [facility] Louise Z95.818 Office Visit 06/11/2015 9:00a [facility] Pj Wadsworth [address] I48.0 [employer] Louise Office Visit 05/06/2015 3:00p [facility] [place] [address] I48.0 [facility] FAC Office Visit 02/06/2015 2:15p [facility] Jonathan Wadsworth, [address] I47.1 [facility] M.DDominic R55 Office Visit 01/26/2015 9:23a [facility] Jonathan Wadsworth, [address] I47.1 [facility] M.DDominic R55 Office Visit 01/06/2015 4:16p [facility] Jonathan Wadsworth, [address] R5Nay Xiong.Alexi R00.2 Plan of Care Future Appointment(s):02/23/2017 4:30 pm - Heriberto Peterson M.D. at [facility]02/28/2017 1:00 pm - Jonathan Wadsworth M.D. at [facility]02/21/2017 - Heriberto Peterson M.D.C34.11 Malignant neoplasm of upper lobe, right bronchus or lung
[2017-03-06] MEDS ORDERED: NS 0.9% 1000 ML* 2,000 ML IV ONE (11:11)
[2017-03-06 12:05] LABS: Hematocrit 22 % (35-47); Hemoglobin 7.5 g/dl (12.0-16.0); Mean Corpuscular HGB Conc 34 g/dl (31-36); Mean Corpuscular Hemoglobin 31 pg (27-31); Mean Corpuscular Volume 93 fL (80-97); Mean Platelet Volume 7 um3 (7.4-10.4); Platelet Count 25 10^3/ul (150-450); Red Blood Count 2.38 10^6/ul (4.0-5.4); Red Cell Distribution Width 15 % (10.5-15); White Blood Count 0.7 10^3/ul (3.5-10.8)
[2017-03-06 12:15] LABS: INR 1.16 (0.77-1.02)
[2017-03-06 13:00] LABS: ABS Basophils 0 10^3/ul (0-0.2); ABS Eosinophils 0 10^3/ul (0-0.6); ABS Lymphocytes 0.3 10^3/ul (1.0-4.8); ABS Monocytes 0 10^3/ul (0-0.8); ABS Neutrophils 0.4 10^3/ul (1.5-7.7); ABS Nucleated RBC 0 10^3/ul; Eosinophil % 0.4 % (0-6); Lymphocyte % 36.5 % (25-47); Nucleated Red Blood Cells % 0.6
--- NOTE | 2017-03-06 14:18 | ED ---
Palomo Faria Thomas, scribed for Mamadou Finnegan MD on 03/06/17 at 1101 . Palpitations / Dysrhythmia - HPI Summary HPI Summary: The patient is a 66 year old female presenting to the emergency department with palpitations characterized as racing that began some time this morning. The patient has a history of A-Fib and recently diagnosed Lung cancer. She is on Multaq. She is accompanied by her . - History of Current Complaint Chief Complaint: EDGeneral Hx Obtained From: Patient Onset/Duration: Still Present Timing: Constant Severity Currently: Moderate Character: Fast Aggravating: Nothing Alleviating: Nothing - Allergy/Home Medications Allergies/Adverse Reactions: Allergies Allergy/AdvReac Type Severity Reaction Status Date / Time Iodine Allergy Unknown Verified 03/06/17 10:43 Reaction Details NSAIDs Allergy Unknown Verified 03/06/17 10:43 Reaction Details Sulfa Antibiotics Allergy Unknown Verified 03/06/17 10:43 Reaction Details PMH/Surg Hx/FS Hx/Imm Hx Previously Healthy: No Endocrine/Hematology History: Denies: Hx Diabetes Cardiovascular History: Reports: Hx Atrial Fibrillation Denies: Hx Angina, Hx Hypertension, Hx Pacemaker/ICD Respiratory History: Reports: Other Respiratory Problems/Disorders - LUNG CA Denies: Hx Asthma GI History: Reports: Hx Gall Bladder Disease - cholecystectomy History: Denies: Hx Renal Disease Sensory History: Reports: Hx Contacts or Glasses Denies: Hx Hearing Aid Opthamlomology History: Reports: Hx Contacts or Glasses Psychiatric History: Denies: Hx Panic Disorder - Cancer History Cancer Type, Location and Year: NEWLY DIAGNOSED - POSITVE BIOPSY. Lung cancer Hx Chemotherapy: No Hx Radiation Therapy: No - Surgical History Surgery Procedure, Year, and Place: CHOLECYSTECTOMY. 01/27/15 - Mfuse LINQ RECORDER- @ [facility] Jennifer/ DR SMITH - WHICH DOWNLOADS EVERY EVENING/NIGHT BUT IS CHECKING ( W/CARDIOLOGY) MORNING OF MRI TO BE SURE IT DID DO DOWNLOAD. TUBAL LIGATION Infectious Disease History: No Infectious Disease History: Denies: Traveled Outside the [place] in Last 30 Days - Family History Known Family History: Positive: Respiratory Disease - father - emphysema, Other - mother - cva - Social History Alcohol Use: None Alcohol Amount: about 3 times a week Hx Substance Use: No Substance Use Type: Reports: None Hx Tobacco Use: Yes Smoking Status (MU): Former Smoker Type: Cigarettes Length of Time of Smoking/Using Tobacco: 45 years Have You Smoked in the Last Year: Yes Review of Systems Negative: Fever Positive: Palpitations All Other Systems Reviewed And Are Negative: Yes Physical Exam - Summary Physical Exam Summary: Appearance: The patient is well-nourished in no acute distress and in no acute pain. Skin: The skin is warm and dry and skin color reflects adequate perfusion. HEENT: The head is normocephalic and atraumatic. The pupils are equal and reactive. The conjunctivae are clear and without drainage. Nares are patent and without drainage. Mouth reveals dry mucous membranes and the throat is without erythema and exudate. The external ears are intact. The ear canals are patent and without drainage. The tympanic membranes are intact. Neck: the neck is supple with full range of motion and non-tender. There are no carotid bruits. There is no neck vein distension. Respiratory: Chest is non-tender. Lungs are clear to auscultation and breath sounds are symmetrical and equal. Cardiovascular: Heart has irregularly irregular rhythm. There is no murmur or rub auscultated. There is no peripheral edema and pulses are symmetrical and equal. Abdomen: The abdomen is soft and non-tender. There are normal bowel sounds heard in all four quadrants and there is no organomegaly palpated. Musculoskeletal: There is no back tenderness noted. Extremities are non-tender with full range of motion. There is good capillary refill. There is no peripheral edema or calf tenderness elicited. Neurological: Patient is alert and oriented to person, place and time. The patient has symmetrical motor strength in all four extremities. Cranial nerves are grossly intact. Deep tendon reflexes are symmetrical and equal in all four extremities. Psychiatric: The patient has an appropriate affect and does not exhibit any anxiety or depression. Triage Information Reviewed: Yes Vital Signs On Initial Exam: Initial Vitals Temp Pulse Resp BP Pulse Ox 98.9 F 104 22 91/59 98 03/06/17 10:25 03/06/17 10:25 03/06/17 10:25 03/06/17 10:25 03/06/17 10:25 Vital Signs Reviewed: Yes - [place] Coma Scale Coma Scale Total: 14 Diagnostics - Vital Signs Vital Signs Temp Pulse Resp BP Pulse Ox 03/06/17 10:45 65 18 97 03/06/17 10:44 115/54 01/15/18 10:25 98.9 F 104 22 91/59 98 - Laboratory Lab Results: Lab Results 03/06/17 03/06/17 03/06/17 Range/Units 11:50 11:50 11:50 WBC 0.7 L (3.5-10.8) 10^3/ul RBC 2.38 L (4.0-5.4) 10^6/ul Hgb 7.5 L (12.0-16.0) g/dl Hct 22 L (35-47) % MCV 93 (80-97) fL MCH 31 (27-31) pg MCHC 34 (31-36) g/dl RDW 15 (10.5-15) % Plt Count 25 L (150-450) 10^3/ul MPV 7 L (7.4-10.4) um3 Neut % (Auto) 60.4 (38-83) % Lymph % (Auto) 36.5 (25-47) % Blount % (Auto) 0.7 L (1-9) % Eos % (Auto) 0.4 (0-6) % Baso % (Auto) 2.0 (0-2) % Absolute Neuts (auto) 0.4 L* (1.5-7.7) 10^3/ul Absolute Lymphs (auto) 0.3 L (1.0-4.8) 10^3/ul Absolute Monos (auto) 0 (0-0.8) 10^3/ul Absolute Eos (auto) 0 (0-0.6) 10^3/ul Absolute Basos (auto) 0 (0-0.2) 10^3/ul Absolute Nucleated RBC 0 10^3/ul Nucleated RBC % 0.6 INR (Anticoag Therapy) 1.16 H (0.77-1.02) Sodium 138 (133-145) mmol/L Potassium 4.0 (3.5-5.0) mmol/L Chloride 106 (101-111) mmol/L Carbon Dioxide 29 (22-32) mmol/L Anion Gap 3 (2-11) mmol/L BUN 8 (6-24) mg/dL Creatinine 0.31 L (0.51-0.95) mg/dL Est GFR ( Amer) 273.9 (>60) Est GFR (Non-Af Amer) 213.0 (>60) BUN/Creatinine Ratio 25.8 H (8-20) Glucose 95 (70-100) mg/dL Lactic Acid (0.5-2.0) mmol/L Calcium 7.9 L (8.6-10.3) mg/dL Magnesium 2.0 (1.9-2.7) mg/dL Total Bilirubin 1.10 H (0.2-1.0) mg/dL AST 83 H (13-39) U/L ALT 42 (7-52) U/L Alkaline Phosphatase 248 H (34-104) U/L Troponin I 0.01 (<0.04) ng/mL Total Protein 5.3 L (6.4-8.9) g/dL Albumin 3.0 L (3.2-5.2) g/dL Globulin 2.3 (2-4) g/dL Albumin/Globulin Ratio 1.3 (1-3) TSH 3.64 (0.34-5.60) mcIU/mL 03/06/17 Range/Units 11:50 WBC (3.5-10.8) 10^3/ul RBC (4.0-5.4) 10^6/ul Hgb (12.0-16.0) g/dl Hct (35-47) % MCV (80-97) fL MCH (27-31) pg MCHC (31-36) g/dl RDW (10.5-15) % Plt Count (150-450) 10^3/ul MPV (7.4-10.4) um3 Neut % (Auto) (38-83) % Lymph % (Auto) (25-47) % Blount % (Auto) (1-9) % Eos % (Auto) (0-6) % Baso % (Auto) (0-2) % Absolute Neuts (auto) (1.5-7.7) 10^3/ul Absolute Lymphs (auto) (1.0-4.8) 10^3/ul Absolute Monos (auto) (0-0.8) 10^3/ul Absolute Eos (auto) (0-0.6) 10^3/ul Absolute Basos (auto) (0-0.2) 10^3/ul Absolute Nucleated RBC 10^3/ul Nucleated RBC % INR (Anticoag Therapy) (0.77-1.02) Sodium (133-145) mmol/L Potassium (3.5-5.0) mmol/L Chloride (101-111) mmol/L Carbon Dioxide (22-32) mmol/L Anion Gap (2-11) mmol/L BUN (6-24) mg/dL Creatinine (0.51-0.95) mg/dL Est GFR ( Amer) (>60) Est GFR (Non-Af Amer) (>60) BUN/Creatinine Ratio (8-20) Glucose (70-100) mg/dL Lactic Acid 1.3 (0.5-2.0) mmol/L Calcium (8.6-10.3) mg/dL Magnesium (1.9-2.7) mg/dL Total Bilirubin (0.2-1.0) mg/dL AST (13-39) U/L ALT (7-52) U/L Alkaline Phosphatase (34-104) U/L Troponin I (<0.04) ng/mL Total Protein (6.4-8.9) g/dL Albumin (3.2-5.2) g/dL Globulin (2-4) g/dL Albumin/Globulin Ratio (1-3) TSH (0.34-5.60) mcIU/mL Result Diagrams: 03/06/17 11:50 03/06/17 11:50 Lab Statement: Any lab studies that have been ordered have been reviewed, and results considered in the medical decision making process. - EKG 11:30 Cardiac Rate: NL EKG Rhythm: Sinus Rhythm - at 80 BPM Course/Dx - Course Course Of Treatment: Ms. Rodriges presented with palpatations and was found to be going in and out of A-Fib with RVR (120-130) and NSR. This improved a lot with IV NS 2 liters. She was found to be pancytopenic. Dr. Matthew accepted her to the outpatient transfusion center. - Diagnoses Provider Diagnoses: A-fib, Dehydration, Pancytopenia - Physician Notifications Discussed Care Of Patient With: Maricarmen Matthew Time Discussed With Above Provider: 13:55 Instructed by Provider To: Other - Dr. Matthew, oncology, says the patient should be discharged for transfusion later today. Discharge - Discharge Plan Condition: Stable Disposition: OTHER Discharge Disposition Comment: Follow up at Dr. Matthew's office today for transfusion Patient Education Materials: A-fib (Atrial Fibrillation) (ED), Dehydration (ED) , Anemia (ED) Referrals: Maricarmen Matthew MD [Medical Doctor] - 03/06/17 Additional Instructions: Follow up at Dr. Matthew's office later today for an infusion. The documentation as recorded by the Palomo galvan Thomas accurately reflects the service I personally performed and the decisions made by me, Mamadou Finnegan MD.
[2017-03-06 14:23] VITALS: BP 95/57
== END 2017-03-06 14:22 ==
LOC: ED 10:23
DX: I48.91 Unspecified atrial fibrillation (principal); E86.0 Dehydration; D61.818 Other pancytopenia; C34.90 Malignant neoplasm of unspecified part of unspecified bronchus or lung; Z88.6 Allergy status to analgesic agent; Z88.2 Allergy status to sulfonamides; Z90.49 Acquired absence of other specified parts of digestive tract; Z87.891 Personal history of nicotine dependence
CPT/HCPCS: 36415; 80053; 83605; 83735; 84443; 84484; 85025; 85610; 86850; 86900; 86901; 86922; 93005; 96360; 99283; P9040

== ENCOUNTER 2017-03-12 12:59 | Inpatient (IN) | payer MEDICARE ==
[2017-03-12] MEDS ORDERED: NS 0.9% 1000 ML* 1,000 ML IV ONE (13:22)
--- NOTE | 2017-03-12 13:45 | RAD ---
HISTORY: Fever, leukopenia COMPARISONS: February 23, 2017, CT dated January 27, 2017 VIEWS: 1: frontal portable view of the chest at 1:30 PM FINDINGS: LINES AND TUBES: None. CARDIOMEDIASTINAL SILHOUETTE: The cardiomediastinal silhouette is normal for portable technique. PLEURA: The costophrenic angles are sharp. No pleural abnormalities are noted. LUNG PARENCHYMA: Again noted is a nodular density overlying the right lower lung at the cardiophrenic angle, stable from the previous CT examination. ABDOMEN: The upper abdomen is clear. There is no subphrenic gas. BONES AND SOFT TISSUES: No bone or soft tissue abnormalities are noted. IMPRESSION: STABLE RIGHT LOWER LUNG NODULE. .
[2017-03-12 14:13] LABS: Hematocrit 22 % (35-47); Hemoglobin 7.7 g/dl (12.0-16.0); Mean Corpuscular HGB Conc 35 g/dl (31-36); Mean Corpuscular Hemoglobin 33 pg (27-31); Mean Corpuscular Volume 96 fL (80-97); Mean Platelet Volume 8 um3 (7.4-10.4); Platelet Count 44 10^3/ul (150-450); Red Blood Count 2.31 10^6/ul (4.0-5.4); Red Cell Distribution Width 15 % (10.5-15)
[2017-03-12 14:21] LABS: EGFR Non-African American 191.5 (>60); INR 1.19 (0.77-1.02)
[2017-03-12 14:54] LABS: ABS Basophils 0 10^3/ul (0-0.2); ABS Eosinophils 0 10^3/ul (0-0.6); ABS Lymphocytes 0.2 10^3/ul (1.0-4.8); ABS Monocytes 0.1 10^3/ul (0-0.8); ABS Neutrophils 0 10^3/ul (1.5-7.7); ABS Nucleated RBC 0 10^3/ul; Eosinophil % 1.3 % (0-6); Nucleated Red Blood Cells % 3.8; White Blood Count 0.3 10^3/ul (3.5-10.8)
[2017-03-12] MEDS ORDERED: Cefepime(*) 2 GM in NS 0.9% 50 ML* 50 ML IVPB ONE (15:24)
[2017-03-12] MEDS ORDERED: Polyethylene Glycol 3350* 17 GM PACKET PO PRN (15:55)
[2017-03-12] MEDS ORDERED: Prochlorperazine TAB* 10 MG PO PRN (15:55)
[2017-03-12] MEDS ORDERED: Docusate CAP* 100 MG PO PRN (15:55)
[2017-03-12] MEDS ORDERED: Diazepam TAB(*) 5 MG PO PRN (15:55)
[2017-03-12] MEDS ORDERED: oxyCODONE TAB* 5 MG TAB PO PRN (15:55)
[2017-03-12] MEDS ORDERED: Cefepime 2 GM in Dextrose(*) 2 GM/50 ML BAG IV SCH (16:00)
--- NOTE | 2017-03-12 16:03 | ADMNOTE ---
Admission Primary Care Provider: Maricarmen Matthew Chief Complaint: palpitations History of Present Illness: 66 yo F w extensive stage lung cancer and afib sp cycle 1 of carbo/etoposide ( cy1dy 1 feb 27) presenting with palpitations and found to be neutropenic and febrile. Naz was recently diagnosed with afib and extensive stage small cell lung cancer, likely involving the bone marrow given low counts. She was started on palliative carboplatin/etoposide, however has had several ER visits for fatigue and palpitations. in general she has been found to be anemic and in afib w RVR, which has resolved with transfusion. Today she comes in with palpitations and a sense of impending doom. She was found to be slightly hypotensive, anemic, and after ~2 hours in the ER, febrile to 100.6 while neutropenic. She has been given fluids and cefepime. She denies cough, headaches, chest pain, nausea, vomiting, focal weakness, or dysuria. She only endorses global weakness and palpitations. Allergies/Medications Medication: Diazepam (Valium Tab(*)) 5 mg PO BEDTIME PRN PRN Reason: ANXIETY Docusate Sodium (Colace Cap*) 200 mg PO BEDTIME PRN PRN Reason: CONSTIPATION Dronabinol (Marinol Cap*) 5 mg PO TID [facility] Dronedarone (Multaq Tab*) 400 mg PO BID [facility] Famotidine (Pepcid Tab*) 20 mg PO DAILY [facility] Fentanyl (Duragesic Patch 50 Mcg/Hr*) 50 mcg TRANSDERM Q72H [facility] Last Admin: 03/12/17 17:51 Dose: 50 mcg Sodium Chloride (Ns 0.9% 1000 Ml*) 1,000 mls @ 125 mls/hr IV PER RATE [facility] Last Admin: 03/12/17 17:07 Dose: 125 mls/hr Cefepime HCl (Maxipime 2 Gm In Dextrose Duplex (*)) 2 gm in 50 mls @ 100 mls/ hr IV 0400,1600 [facility] Ondansetron HCl (Zofran Tab*) 4 mg PO Q4H [facility] Last Admin: 03/12/17 17:44 Dose: 4 mg Oxycodone HCl (Roxycodone Tab*) 5 mg PO Q4H PRN PRN Reason: PAIN Pharmacy Profile Note (Fentanyl Patch Check Q Shift) 0 note N/A 0700,1900 [facility] Polyethylene Glycol/Electrolytes (Miralax*) 17 gm PO DAILY PRN PRN Reason: CONSTIPATION Prochlorperazine (Compazine Tab*) 10 mg PO Q6H PRN PRN Reason: NAUSEA Senna (Senokot Tab*) 2 tab PO BID [facility] Allergies/Adverse Reactions: Allergies Allergy/AdvReac Type Severity Reaction Status Date / Time Iodine Allergy Unknown Verified 03/12/17 13:13 Reaction Details NSAIDs Allergy Unknown Verified 03/12/17 13:13 Reaction Details Sulfa Antibiotics Allergy Unknown Verified 03/12/17 13:13 Reaction Details History - Past Medical History Other History: afib. copd. cholecystecomy. tubal ligation - Family History Hx Family Cancer: Yes - father and two brothers with prostate CA, brother HCC ( hep C) - Social History Hx Alcohol Use: No Hx Tobacco Use: Yes - 1/2 ppd Marital Status: Review of Systems - Review of Systems General Comments: extensive ROS as per HPI Physical Exam - Physical Exam Physical Examination: Vital Signs Temp Pulse Resp BP Pulse Ox 97.9 F 72 16 101/52 100 03/12/17 17:08 03/12/17 17:08 03/12/17 17:51 03/12/17 17:08 03/12/17 17:08 perr eomi op moist cta bl s1 s2 nl soft nt +bs no le edema A_O x 3, nonfocal neurological exam Results - Lab Results Lab Results: 03/12/17 03/12/17 03/12/17 13:53 13:53 13:53 WBC 0.3 L RBC 2.31 L Hgb 7.7 L Hct 22 L MCV 96 MCH 33 H MCHC 35 RDW 15 Plt Count 44 L D MPV 8 Neut % (Auto) 9.3 L Lymph % (Auto) 60.0 H [place] % (Auto) 28.0 H Eos % (Auto) 1.3 Baso % (Auto) 1.4 Absolute Neuts (auto) 0 L* Absolute Lymphs (auto) 0.2 L Absolute Monos (auto) 0.1 Absolute Eos (auto) 0 Absolute Basos (auto) 0 Absolute Nucleated RBC 0 Nucleated RBC % 3.8 INR (Anticoag Therapy) 1.19 H APTT 26.3 Sodium 135 Potassium 3.3 L Chloride 103 Carbon Dioxide 26 Anion Gap 6 BUN 7 Creatinine 0.34 L Est GFR ( Amer) 246.2 Est GFR (Non-Af Amer) 191.5 BUN/Creatinine Ratio 20.6 H Glucose 115 H Lactic Acid Calcium 8.3 L Total Bilirubin 0.90 AST 28 ALT 23 Alkaline Phosphatase 214 H Troponin I 0.00 Total Protein 5.4 L Albumin 3.0 L Globulin 2.4 Albumin/Globulin Ratio 1.3 03/12/17 13:53 WBC RBC Hgb Hct MCV MCH MCHC RDW Plt Count MPV Neut % (Auto) Lymph % (Auto) [place] % (Auto) Eos % (Auto) Baso % (Auto) Absolute Neuts (auto) Absolute Lymphs (auto) Absolute Monos (auto) Absolute Eos (auto) Absolute Basos (auto) Absolute Nucleated RBC Nucleated RBC % INR (Anticoag Therapy) APTT Sodium Potassium Chloride Carbon Dioxide Anion Gap BUN Creatinine Est GFR ( Amer) Est GFR (Non-Af Amer) BUN/Creatinine Ratio Glucose Lactic Acid 1.4 Calcium Total Bilirubin AST ALT Alkaline Phosphatase Troponin I Total Protein Albumin Globulin Albumin/Globulin Ratio Assessment and Plan Impression: 66 yo F w afib and extensive stage small cell lung cancer on palliative carboplatin/etoposide presenting with palpitations, anemia, afib and febrile neutropenia. febrile neutropenia: source unclear. relatively hemodynamically stable for her. -cont ivfs -fu erickson culture -cefepime q12 hr afib w rvr: cont multaq no anticoagulation given thrombocytopenia cardiac diet hypokalemia: likely related to poor PO intake plus poarch, and likely exacerbating afib -will replete IV and check magnesium constipation: cont senna/colace and prn miralax no DVT prophylaxis give thrombocytopenia I discussed code status with Naz and her at length and they are very clear that she would like to be full code
[2017-03-12] MEDS: NS 0.9% 1000 ML* 1,000 ML IV SCH ×2 (16:17→17:07)
[2017-03-12] MEDS: Ondansetron TAB* 4 MG PO SCH ×2 (17:44→20:45)
[2017-03-12] MEDS: fentaNYL PATCH 50 MCG/HR TRANSDERM SCH (17:51)
[2017-03-12] MEDS: fentaNYL Patch Check Q Shift 1 NOTE SCH (19:16)
[2017-03-12] MEDS: Dronabinol CAP* 2.5 MG PO SCH (19:26)
[2017-03-12] MEDS: KCL 10 MEQ/50 ML IVPREMIX* 10 MEQ/50 ML BAG IV SCH ×3 (20:29→23:51)
[2017-03-12] MEDS: Senna TAB PO SCH (20:45)
[2017-03-12] MEDS: Dronedarone TAB* 400 MG PO SCH (20:45)
[2017-03-12 21:25] LABS: Urine Appearance Cloudy; Urine Blood Negative (Negative); Urine Color Yellow; Urine Ketones Trace (Negative); Urine Protein Negative (Negative); Urine Specific Gravity 1.014 (1.010-1.030); Urine Urobilinogen Negative (Negative)
--- NOTE | 2017-03-12 22:00 | ED ---
Viktoriya Faria Julia, scribed for Mamadou Finnegan MD on 03/12/17 at 1433 . Shortness of Breath - HPI Summary HPI Summary: This patient is a 66 year old F BIBA to [facility] accompanied by with a chief complaint of SOB an A-fib since 11:30 this morning. reports a fever of 101, and HR of 135 when the ambulance was called. Patient denies cough and dysuria. Patient had blood transfusion on 03/09/17 (1 unit) and 03/06/17 (1 unit). Patient received chemotherapy on February 27, , and 2017. states Dr. Gil recommended she comes to the ED. Patients glove turner and former is Dr. Wadsworth. Patient has history of cholecystectomy, a-fib, supraventricular tachycardia, and Lung CA. - History of Current Complaint Chief Complaint: EDWeakness Time Seen by Provider: 03/12/17 13:05 Hx Obtained From: Patient, Family/Child Care Sitter Onset/Duration: Sudden Onset Current Severity: Mild Associated Signs & Symptoms: Fever Related History: Similar Episode - hx of a-fib and SVT - Allergy/Home Medications Allergies/Adverse Reactions: Allergies Allergy/AdvReac Type Severity Reaction Status Date / Time Iodine Allergy Unknown Verified 03/12/17 13:13 Reaction Details NSAIDs Allergy Unknown Verified 03/12/17 13:13 Reaction Details Sulfa Antibiotics Allergy Unknown Verified 03/12/17 13:13 Reaction Details Home Medications: Home Medications Diazepam TAB(*) [Valium TAB(*)] 5 mg PO BEDTIME PRN 03/12/17 [History Confirmed 03/12/17] Docusate CAP* [Colace Cap*] 200 mg PO BEDTIME PRN 03/12/17 [History Confirmed ] Dronabinol CAP* [Marinol CAP*] 5 mg PO TID 03/12/17 [History Confirmed 03/12/17] Dronedarone TAB* [Multaq TAB*] 400 mg PO BID 03/12/17 [History Confirmed ] Famotidine TAB* [Pepcid 20 MG TAB*] 20 mg PO DAILY 03/12/17 [History Confirmed 03/12/17] Ondansetron TAB* [Zofran 4 MG Tab*] 4 mg PO Q4H 03/12/17 [History Confirmed ] Polyethylene Glycol 3350* [Miralax*] 17 gm PO DAILY PRN 03/12/17 [History Confirmed 03/12/17] Prochlorperazine TAB* [Compazine Tab*] 10 mg PO Q6H PRN 03/12/17 [History Confirmed 03/12/17] Senna TAB* [Senokot TAB*] 2 tab PO BID 03/12/17 [History Confirmed 03/12/17] oxyCODONE TAB* [Roxycodone TAB 5 mg*] 5 mg PO Q4H PRN 03/12/17 [History Confirmed 03/12/17] PMH/Surg Hx/FS Hx/Imm Hx Endocrine/Hematology History: Denies: Hx Diabetes Cardiovascular History: Reports: Hx Atrial Fibrillation, Hx Supraventricular Ventricular Tachycardia Denies: Hx Angina, Hx Hypertension, Hx Pacemaker/ICD Respiratory History: Reports: Other Respiratory Problems/Disorders - LUNG CA Denies: Hx Asthma GI History: Reports: Hx Gall Bladder Disease - cholecystectomy History: Denies: Hx Renal Disease Sensory History: Reports: Hx Contacts or Glasses Denies: Hx Hearing Aid Opthamlomology History: Reports: Hx Contacts or Glasses Psychiatric History: Denies: Hx Panic Disorder - Cancer History Cancer Type, Location and Year: NEWLY DIAGNOSED - POSITVE BIOPSY. Lung cancer Hx Chemotherapy: No Hx Radiation Therapy: No - Surgical History Surgery Procedure, Year, and Place: CHOLECYSTECTOMY. 01/27/15 - Fluencr LINQ RECORDER- @ [facility] W/ DR WADSWORTH - WHICH DOWNLOADS EVERY EVENING/NIGHT BUT IS CHECKING ( W/CARDIOLOGY) MORNING OF MRI TO BE SURE IT DID DO DOWNLOAD. TUBAL LIGATION Infectious Disease History: No Infectious Disease History: Denies: Traveled Outside the [place] in Last 30 Days - Family History Known Family History: Positive: Respiratory Disease - father - emphysema, Other - mother - cva - Social History Alcohol Use: None Alcohol Amount: about 3 times a week Hx Substance Use: No Substance Use Type: Reports: None Hx Tobacco Use: Yes Smoking Status (MU): Former Smoker Type: Cigarettes Length of Time of Smoking/Using Tobacco: 45 years Have You Smoked in the Last Year: Yes Review of Systems Positive: Fever Positive: Palpitations Positive: Shortness Of Breath. Negative: Cough Positive: no symptoms reported. Negative: dysuria All Other Systems Reviewed And Are Negative: Yes Physical Exam - Summary Physical Exam Summary: Appearance: The patient is well-nourished in no acute distress and in no acute pain. Skin: The skin is warm and dry. Skin is pale HEENT: The head is normocephalic and atraumatic. The pupils are equal and reactive. The conjunctivae are clear and without drainage. Nares are patent and without drainage. Mouth reveals dry mucous membranes and the throat is without erythema and exudate. The external ears are intact. The ear canals are patent and without drainage. The tympanic membranes are intact. Neck: the neck is supple with full range of motion and non-tender. There are no carotid bruits. There is no neck vein distension. Respiratory: Chest is non-tender. Lungs are clear to auscultation and breath sounds are symmetrical and equal. Cardiovascular: Heart is regular rate and rhythm. There is no murmur or rub auscultated. There is no peripheral edema and pulses are symmetrical and equal. Abdomen: The abdomen is soft and non-tender. There are normal bowel sounds heard in all four quadrants and there is no organomegaly palpated. Musculoskeletal: There is no back tenderness noted. Extremities are non-tender with full range of motion. There is good capillary refill. There is no peripheral edema or calf tenderness elicited. Neurological: Patient is alert and oriented to person, place and time. The patient has symmetrical motor strength in all four extremities. Cranial nerves are grossly intact. Deep tendon reflexes are symmetrical and equal in all four extremities. Psychiatric: The patient has an appropriate affect and does not exhibit any anxiety or depression. Triage Information Reviewed: Yes Vital Signs On Initial Exam: Initial Vitals Temp Pulse Resp BP Pulse Ox 100.1 F 87 15 80/47 97 03/12/17 13:04 03/12/17 13:04 03/12/17 13:04 03/12/17 13:04 03/12/17 13:04 Vital Signs Reviewed: Yes - Milena Coma Scale Coma Scale Total: 15 Diagnostics - Vital Signs Vital Signs Temp Pulse Resp BP Pulse Ox 03/12/17 13:04 100.1 F 87 15 80/47 97 - Laboratory Lab Results: Lab Results 03/12/17 03/12/17 03/12/17 Range/Units 13:53 13:53 13:53 WBC Pending RBC 2.31 L (4.0-5.4) 10^6/ul Hgb 7.7 L (12.0-16.0) g/dl Hct 22 L (35-47) % MCV 96 (80-97) fL MCH 33 H (27-31) pg MCHC 35 (31-36) g/dl RDW 15 (10.5-15) % Plt Count 44 L D (150-450) 10^3/ul MPV 8 (7.4-10.4) um3 Neut % (Auto) Pending Lymph % (Auto) Pending [place] % (Auto) Pending Eos % (Auto) Pending Baso % (Auto) Pending Absolute Neuts (auto) Pending Absolute Lymphs (auto) Pending Absolute Monos (auto) Pending Absolute Eos (auto) Pending Absolute Basos (auto) Pending Absolute Nucleated RBC Pending Nucleated RBC % Pending INR (Anticoag Therapy) 1.19 H (0.77-1.02) APTT 26.3 (26.0-36.3) seconds Sodium 135 (133-145) mmol/L Potassium 3.3 L (3.5-5.0) mmol/L Chloride 103 (101-111) mmol/L Carbon Dioxide 26 (22-32) mmol/L Anion Gap 6 (2-11) mmol/L BUN 7 (6-24) mg/dL Creatinine 0.34 L (0.51-0.95) mg/dL Est GFR ( Amer) 246.2 (>60) Est GFR (Non-Af Amer) 191.5 (>60) BUN/Creatinine Ratio 20.6 H (8-20) Glucose 115 H (70-100) mg/dL Lactic Acid (0.5-2.0) mmol/L Calcium 8.3 L (8.6-10.3) mg/dL Total Bilirubin 0.90 (0.2-1.0) mg/dL AST 28 (13-39) U/L ALT 23 (7-52) U/L Alkaline Phosphatase 214 H (34-104) U/L Troponin I 0.00 (<0.04) ng/mL Total Protein 5.4 L (6.4-8.9) g/dL Albumin 3.0 L (3.2-5.2) g/dL Globulin 2.4 (2-4) g/dL Albumin/Globulin Ratio 1.3 (1-3) 03/12/17 Range/Units 13:53 WBC RBC (4.0-5.4) 10^6/ul Hgb (12.0-16.0) g/dl Hct (35-47) % MCV (80-97) fL MCH (27-31) pg MCHC (31-36) g/dl RDW (10.5-15) % Plt Count (150-450) 10^3/ul MPV (7.4-10.4) um3 Neut % (Auto) Lymph % (Auto) [place] % (Auto) Eos % (Auto) Baso % (Auto) Absolute Neuts (auto) Absolute Lymphs (auto) Absolute Monos (auto) Absolute Eos (auto) Absolute Basos (auto) Absolute Nucleated RBC Nucleated RBC % INR (Anticoag Therapy) (0.77-1.02) APTT (26.0-36.3) seconds Sodium (133-145) mmol/L Potassium (3.5-5.0) mmol/L Chloride (101-111) mmol/L Carbon Dioxide (22-32) mmol/L Anion Gap (2-11) mmol/L BUN (6-24) mg/dL Creatinine (0.51-0.95) mg/dL Est GFR ( Amer) (>60) Est GFR (Non-Af Amer) (>60) BUN/Creatinine Ratio (8-20) Glucose (70-100) mg/dL Lactic Acid 1.4 (0.5-2.0) mmol/L Calcium (8.6-10.3) mg/dL Total Bilirubin (0.2-1.0) mg/dL AST (13-39) U/L ALT (7-52) U/L Alkaline Phosphatase (34-104) U/L Troponin I (<0.04) ng/mL Total Protein (6.4-8.9) g/dL Albumin (3.2-5.2) g/dL Globulin (2-4) g/dL Albumin/Globulin Ratio (1-3) Result Diagrams: 03/12/17 13:53 03/12/17 13:53 Lab Statement: Any lab studies that have been ordered have been reviewed, and results considered in the medical decision making process. - Radiology CXR Radiology Interpretation Completed By: Radiologist - STABLE RIGHT LOWER LUNG NODULE. ED Physician has reviewed this report. Course/Dx - Course Course Of Treatment: Ms. Rodriges presented with tachycardia and SOB that started today. She was in A-fib in the ambulance but not on arrival. She was found to be profoundly neutropenic as well as anemic and spiked a fever here in the ED. Dr. Matthew came and admitted her to the hospital. - Diagnoses Provider Diagnoses: Neutropenic fever, Pancytopenia - Physician Notifications Discussed Care of Patient With: Maricarmen Matthew Time Discussed With Above Provider: 15:22 Instructed by Provider To: Admit As Inpatient - will evaluate and admit - Critical Care Time Critical Care Time: 30-74 min Discharge - Discharge Plan Condition: Stable Disposition: ADMITTED TO [facility] The documentation as recorded by the Viktoriya galvan Julia accurately reflects the service I personally performed and the decisions made by me, Mamadou Finnegan MD.
[2017-03-13] MEDS ORDERED: CMCS: Melatonin (NF) 3 MG TAB PO PRN (00:24)
[2017-03-13] MEDS: Ondansetron TAB* 4 MG PO SCH ×6 (01:18→22:27)
[2017-03-13] MEDS: KCL 10 MEQ/50 ML IVPREMIX* 10 MEQ/50 ML BAG IV SCH ×3 (01:20→06:06)
[2017-03-13] MEDS: NS 0.9% 1000 ML* 1,000 ML IV SCH ×3 (01:21→17:03)
[2017-03-13] MEDS: Cefepime 2 GM in Dextrose(*) 2 GM/50 ML BAG IV SCH ×2 (04:59→16:57)
[2017-03-13] MEDS: fentaNYL Patch Check Q Shift 1 NOTE SCH ×2 (06:16→19:46)
[2017-03-13 06:33] LABS: EGFR Non-African American 221.2 (>60)
[2017-03-13 06:42] LABS: ABS Neutrophils 0 10^3/ul (1.5-7.7); Hematocrit 20 % (35-47); Hemoglobin 7.2 g/dl (12.0-16.0); Mean Corpuscular HGB Conc 35 g/dl (31-36); Mean Corpuscular Hemoglobin 32 pg (27-31); Mean Corpuscular Volume 91 fL (80-97); Mean Platelet Volume 9 um3 (7.4-10.4); Platelet Count 58 10^3/ul (150-450); Red Blood Count 2.24 10^6/ul (4.0-5.4); Red Cell Distribution Width 14 % (10.5-15); White Blood Count 0.5 10^3/ul (3.5-10.8)
[2017-03-13 06:43] LABS: ABS Basophils 0 10^3/ul (0-0.2); ABS Eosinophils 0 10^3/ul (0-0.6); ABS Lymphocytes 0.3 10^3/ul (1.0-4.8); ABS Monocytes 0.1 10^3/ul (0-0.8); Eosinophil % 0.8 % (0-6); Lymphocyte % 65.2 % (25-47)
[2017-03-13] MEDS: Dronedarone TAB* 400 MG PO SCH ×2 (08:54→22:28)
[2017-03-13] MEDS: Famotidine TAB* 20 MG PO SCH (08:54)
[2017-03-13] MEDS: Senna TAB PO SCH ×2 (08:55→22:28)
[2017-03-13] MEDS: Dronabinol CAP* 2.5 MG PO SCH ×3 (08:55→22:27)
--- NOTE | 2017-03-13 10:00 | PN ---
Progress Note - Progress Note Date of Service: 03/13/17 SOAP: Subjective: []Overall doing better today. Has pain on tail bone. Not eating much and has some diarrhea. No fevers that she knew about. No palpitations this am. Diazepam (Valium Tab(*)) 5 mg PO BEDTIME PRN PRN Reason: ANXIETY Docusate Sodium (Colace Cap*) 200 mg PO BEDTIME PRN PRN Reason: CONSTIPATION Dronabinol (Marinol Cap*) 5 mg PO TID [facility] Last Admin: 03/13/17 08:55 Dose: Not Given Dronedarone (Multaq Tab*) 400 mg PO BID [facility] Last Admin: 03/13/17 08:54 Dose: 400 mg Famotidine (Pepcid Tab*) 20 mg PO DAILY [facility] Last Admin: 03/13/17 08:54 Dose: Not Given Fentanyl (Duragesic Patch 50 Mcg/Hr*) 50 mcg TRANSDERM Q72H [facility] Last Admin: 03/12/17 17:51 Dose: 50 mcg Sodium Chloride (Ns 0.9% 1000 Ml*) 1,000 mls @ 125 mls/hr IV PER RATE [facility] Last Admin: 03/13/17 01:21 Dose: 125 mls/hr Cefepime HCl (Maxipime 2 Gm In Dextrose Duplex (*)) 2 gm in 50 mls @ 100 mls/ hr IV 0400,1600 [facility] Last Admin: 03/13/17 04:59 Dose: 100 mls/hr Melatonin (Melatonin (Nf)) 3 mg PO BEDTIME PRN PRN Reason: SLEEP Last Admin: 03/13/17 01:19 Dose: 3 mg Ondansetron HCl (Zofran Tab*) 4 mg PO Q4H [facility] Last Admin: 03/13/17 08:54 Dose: 4 mg Oxycodone HCl (Roxycodone Tab*) 5 mg PO Q4H PRN PRN Reason: PAIN Pharmacy Profile Note (Fentanyl Patch Check Q Shift) 0 note N/A 0700,1900 [facility] Last Admin: 03/13/17 06:16 Dose: 1 note Polyethylene Glycol/Electrolytes (Miralax*) 17 gm PO DAILY PRN PRN Reason: CONSTIPATION Prochlorperazine (Compazine Tab*) 10 mg PO Q6H PRN PRN Reason: NAUSEA Senna (Senokot Tab*) 2 tab PO BID [facility] Last Admin: 03/13/17 08:55 Dose: 2 tab Objective: [] Vital Signs Temp Pulse Resp BP Pulse Ox 97.9 F 75 16 99/49 96 03/13/17 03:52 03/13/17 03:52 03/13/17 03:52 03/13/17 03:52 03/13/17 03:52 HEENT: pale, no thrush CTA RRR S1S2, at 100 today. not in a-fib +BS, NT ND, hyperactive Ext no c/c/e Labs reviewed. Assessment: []66 year old with SSLC with extensive esthela metastasis who presents with fever , a-fib and SOB. Given IV metoprolol, fluids and antibiotics. HR improved today. Plan: []1. A-fib. Second to anemia, fever, dehydration after chemotherapy - Tx 1 U PRBC - Case discussed with Dr. Wadsworth and will hold Multaq and plan Amiodarone. Dr. Wadsworth to see today. - Replete Mg 2. NF. Continue antibiotics, expect increased WBC in next 48 hrs. 3. Platelets are improved. I expect less thrombocytopenia on future cycle if disease responds in marrow. Will discuss anticoagulation with Dr. Wadsworth. 4. SSLC. Will need to follow after acute event for response to chemotherapy, expect she will improved. Discussed that therapy is palliative and we have discussed prognosis. Did not discuss DNR today and reasonable at this time treat acute illness aggressively.
[2017-03-13] MEDS ORDERED: Magnesium Sulfate 2 GM IV* 2 GM/50 ML BAG IVPB ONE (10:01)
[2017-03-13] MEDS ORDERED: Acetaminophen TAB* 325 MG PO ONE (15:45)
[2017-03-13] MEDS ORDERED: LORazepam INJ* 2 MG/ML 1 ML VIAL IV PUSH ONE (17:13)
[2017-03-14] MEDS: Ondansetron TAB* 4 MG PO SCH ×6 (00:20→21:34)
[2017-03-14] MEDS: NS 0.9% 1000 ML* 1,000 ML IV SCH ×3 (02:26→21:35)
[2017-03-14] MEDS: Cefepime 2 GM in Dextrose(*) 2 GM/50 ML BAG IV SCH ×2 (03:43→16:20)
[2017-03-14] MEDS: fentaNYL Patch Check Q Shift 1 NOTE SCH ×2 (06:49→21:37)
[2017-03-14] MEDS: Dronedarone TAB* 400 MG PO SCH (07:13)
[2017-03-14] MEDS: Dronabinol CAP* 2.5 MG PO SCH ×3 (07:13→21:34)
[2017-03-14] MEDS: Famotidine TAB* 20 MG PO SCH (07:17)
[2017-03-14 08:17] LABS: Hematocrit 26 % (35-47); Hemoglobin 8.8 g/dl (12.0-16.0); Mean Corpuscular HGB Conc 35 g/dl (31-36); Mean Corpuscular Hemoglobin 34 pg (27-31); Mean Corpuscular Volume 100 fL (80-97); Mean Platelet Volume 8 um3 (7.4-10.4); Platelet Count 49 10^3/ul (150-450); Red Blood Count 2.55 10^6/ul (4.0-5.4); Red Cell Distribution Width 16 % (10.5-15)
[2017-03-14] MEDS: Senna TAB PO SCH ×2 (08:23→21:35)
[2017-03-14 09:32] LABS: White Blood Count 0.3 10^3/ul (3.5-10.8)
[2017-03-14 09:33] LABS: Monocytes % 30 % (0-13)
[2017-03-14] MEDS ORDERED: LORazepam TAB(*) 0.5 MG PO PRN (09:52)
[2017-03-14] MEDS ORDERED: Potassium Chlor TAB* 20 MEQ TAB.ER PO SCH (10:00)
[2017-03-14] MEDS: Potassium Chloride LIQUID* 20 MEQ PACKET PO SCH (21:32)
[2017-03-15] MEDS: Ondansetron TAB* 4 MG PO SCH ×6 (01:55→22:44)
[2017-03-15] MEDS: Cefepime 2 GM in Dextrose(*) 2 GM/50 ML BAG IV SCH ×2 (04:23→16:17)
[2017-03-15] MEDS: NS 0.9% 1000 ML* 1,000 ML IV SCH (06:16)
[2017-03-15 06:50] LABS: Hematocrit 25 % (35-47); Hemoglobin 8.7 g/dl (12.0-16.0); Mean Corpuscular HGB Conc 35 g/dl (31-36); Mean Corpuscular Hemoglobin 31 pg (27-31); Mean Corpuscular Volume 88 fL (80-97); Mean Platelet Volume 8 um3 (7.4-10.4); Platelet Count 130 10^3/ul (150-450); Red Blood Count 2.84 10^6/ul (4.0-5.4); Red Cell Distribution Width 15 % (10.5-15); White Blood Count 0.9 10^3/ul (3.5-10.8)
[2017-03-15 06:57] LABS: EGFR Non-African American 191.5 (>60)
[2017-03-15] MEDS: fentaNYL Patch Check Q Shift 1 NOTE SCH ×2 (07:23→22:49)
[2017-03-15] MEDS: Dronabinol CAP* 2.5 MG PO SCH ×3 (07:27→22:48)
[2017-03-15] MEDS: Famotidine TAB* 20 MG PO SCH (07:27)
[2017-03-15] MEDS: Senna TAB PO SCH ×2 (07:59→22:48)
[2017-03-15 08:26] LABS: ABS Basophils 0 10^3/ul (0-0.2); ABS Eosinophils 0 10^3/ul (0-0.6); ABS Lymphocytes 0.5 10^3/ul (1.0-4.8); ABS Monocytes 0.3 10^3/ul (0-0.8); ABS Neutrophils 0.2 10^3/ul (1.5-7.7); ABS Nucleated RBC 0.1 10^3/ul; Eosinophil % 0.5 % (0-6); Lymphocyte % 51.6 % (25-47); Nucleated Red Blood Cells % 8.7
[2017-03-15] MEDS: Potassium Chloride LIQUID* 20 MEQ PACKET PO SCH (10:13)
[2017-03-15] MEDS ORDERED: Potassium Chlor TAB* 10 MEQ TAB.ER PO SCH (11:00)
[2017-03-15] MEDS ORDERED: Potassium Chlor TAB* 20 MEQ TAB.ER PO SCH (11:00)
[2017-03-15] MEDS: Potassium Chlor TAB* 10 MEQ TAB.ER PO SCH ×2 (11:17→22:45)
[2017-03-15] MEDS: fentaNYL PATCH 50 MCG/HR TRANSDERM SCH (17:31)
[2017-03-16] MEDS: Ondansetron TAB* 4 MG PO SCH ×6 (01:20→22:41)
[2017-03-16] MEDS: Cefepime 2 GM in Dextrose(*) 2 GM/50 ML BAG IV SCH ×2 (04:18→16:50)
[2017-03-16 06:27] LABS: Hematocrit 24 % (35-47); Hemoglobin 8.4 g/dl (12.0-16.0); Mean Corpuscular HGB Conc 35 g/dl (31-36); Mean Corpuscular Hemoglobin 31 pg (27-31); Mean Corpuscular Volume 90 fL (80-97); Mean Platelet Volume 8 um3 (7.4-10.4); Platelet Count 173 10^3/ul (150-450); Red Cell Distribution Width 15 % (10.5-15); White Blood Count 0.9 10^3/ul (3.5-10.8)
[2017-03-16 06:44] LABS: EGFR Non-African American 173.7 (>60)
[2017-03-16] MEDS: fentaNYL Patch Check Q Shift 1 NOTE SCH ×2 (07:13→22:39)
[2017-03-16] MEDS: Dronabinol CAP* 2.5 MG PO SCH ×4 (08:05→22:41)
[2017-03-16] MEDS: Senna TAB PO SCH ×2 (08:06→22:41)
[2017-03-16] MEDS: Famotidine TAB* 20 MG PO SCH ×2 (08:06→08:14)
[2017-03-16] MEDS: Potassium Chlor TAB* 10 MEQ TAB.ER PO SCH ×2 (08:13→22:39)
--- NOTE | 2017-03-16 08:35 | PN ---
Progress Note - Progress Note Date of Service: 03/16/17 SOAP: Subjective: overall feels better than on admission. +constipation. no nausea. aware of palpitations last night and this am. no SOB. no headaches. lower back pain under good control. Objective: Vital Signs Temp Pulse Resp BP Pulse Ox 98.0 F 95 16 85/51 97 03/16/17 08:13 03/16/17 08:13 03/16/17 08:13 03/16/17 08:13 03/16/17 08:13 perr eomi op moist dec bs on right irr irr soft nt +Bs no le edema A+O x 3, nonfocal neuro exam Laboratory Results - last 24 hr 03/16/17 03/16/17 06:10 06:10 WBC 0.9 L RBC 2.70 L Hgb 8.4 L Hct 24 L MCV 90 MCH 31 MCHC 35 RDW 15 Plt Count 173 MPV 8 Sodium 137 Potassium 4.0 Chloride 105 Carbon Dioxide 27 Anion Gap 5 BUN 8 Creatinine 0.37 L Est GFR ( Amer) 223.4 Est GFR (Non-Af Amer) 173.7 BUN/Creatinine Ratio 21.6 H Glucose 97 Calcium 8.7 Amiodarone HCl (Cordarone Tab*) 200 mg PO BID [facility] Diazepam (Valium Tab(*)) 5 mg PO BEDTIME PRN PRN Reason: ANXIETY Docusate Sodium (Colace Cap*) 200 mg PO BEDTIME PRN PRN Reason: CONSTIPATION Dronabinol (Marinol Cap*) 5 mg PO TID [facility] Last Admin: 03/16/17 08:14 Dose: Not Given Famotidine (Pepcid Tab*) 20 mg PO DAILY [facility] Last Admin: 03/16/17 08:14 Dose: Not Given Fentanyl (Duragesic Patch 50 Mcg/Hr*) 50 mcg TRANSDERM Q72H [facility] Last Admin: 03/15/17 17:31 Dose: 50 mcg Cefepime HCl (Maxipime 2 Gm In Dextrose Duplex (*)) 2 gm in 50 mls @ 100 mls/ hr IV 0400,1600 [facility] Last Admin: 03/16/17 04:18 Dose: 100 mls/hr Lorazepam (Ativan Tab(*)) 0.5 mg PO Q8H PRN PRN Reason: ANXIETY Melatonin (Melatonin (Nf)) 3 mg PO BEDTIME PRN PRN Reason: SLEEP Last Admin: 03/13/17 01:19 Dose: 3 mg Ondansetron HCl (Zofran Tab*) 4 mg PO Q4H [facility] Last Admin: 03/16/17 08:06 Dose: 4 mg Oxycodone HCl (Roxycodone Tab*) 5 mg PO Q4H PRN PRN Reason: PAIN Pharmacy Profile Note (Fentanyl Patch Check Q Shift) 0 note N/A 0700,1900 [facility] Last Admin: 03/16/17 07:13 Dose: 1 note Polyethylene Glycol/Electrolytes (Miralax*) 17 gm PO DAILY PRN PRN Reason: CONSTIPATION Potassium Chloride (Klor Con Er Tab*) 20 meq PO BID [facility] Last Admin: 03/16/17 08:13 Dose: 20 meq Prochlorperazine (Compazine Tab*) 10 mg PO Q6H PRN PRN Reason: NAUSEA Senna (Senokot Tab*) 2 tab PO BID [facility] Last Admin: 03/16/17 08:06 Dose: 2 tab Assessment: 66 yo F w extensive stage small cell lung CA with presumptive bone marrow involvement p/w neutropenic fevers, now slowly recovering ANC. Also afib w RVR. Plan: Neutropenic fevers: afebrile on Abx anc slowly recovering cont cefepime suspect marrow involvement improving given robust rebound of platelets plan for chemo on Monday, but will depend on ANC afib w rvr: to start amiodarone today, more aware of palpitations will fu with Dr. Wadsworth will add anticoagulation at this point, likely lovenox but will discuss with Dr. Flores constipation: encouraged use of miralax that is ordered back pain: stable on fentanyl full code
[2017-03-16 08:37] LABS: ABS Basophils 0 10^3/ul (0-0.2); ABS Eosinophils 0 10^3/ul (0-0.6); ABS Lymphocytes 0.3 10^3/ul (1.0-4.8); ABS Monocytes 0.3 10^3/ul (0-0.8); ABS Neutrophils 0.3 10^3/ul (1.5-7.7); ABS Nucleated RBC 0.1 10^3/ul; Eosinophil % 0.5 % (0-6); Lymphocyte % 36.7 % (25-47); Nucleated Red Blood Cells % 6.5
[2017-03-16] MEDS: Amiodarone TAB* 200 MG PO SCH ×2 (09:19→22:40)
[2017-03-16] MEDS: Aspirin EC Low Dose* 81 MG TAB.EC PO SCH (09:20)
[2017-03-16] MEDS: Enoxaparin(*) 30 MG/0.3 ML SYR SUBCUT SCH (09:20)
[2017-03-16] MEDS ORDERED: NS 0.9% 1000 ML* 1,000 ML IV ONE (12:34)
[2017-03-17] MEDS: Ondansetron TAB* 4 MG PO SCH ×6 (02:10→21:24)
[2017-03-17] MEDS: Cefepime 2 GM in Dextrose(*) 2 GM/50 ML BAG IV SCH ×2 (04:42→17:10)
[2017-03-17 06:48] LABS: Hematocrit 26 % (35-47); Hemoglobin 8.9 g/dl (12.0-16.0); Mean Corpuscular HGB Conc 34 g/dl (31-36); Mean Corpuscular Hemoglobin 31 pg (27-31); Mean Corpuscular Volume 90 fL (80-97); Mean Platelet Volume 7 um3 (7.4-10.4); Platelet Count 217 10^3/ul (150-450); Red Cell Distribution Width 15 % (10.5-15); White Blood Count 1.2 10^3/ul (3.5-10.8)
[2017-03-17] MEDS: fentaNYL Patch Check Q Shift 1 NOTE SCH ×2 (06:51→19:31)
[2017-03-17 07:03] LABS: EGFR Non-African American 205.4 (>60)
[2017-03-17 07:52] LABS: Monocytes % 20 % (0-13)
[2017-03-17] MEDS: Potassium Chlor TAB* 10 MEQ TAB.ER PO SCH ×2 (08:45→21:25)
[2017-03-17] MEDS: Senna TAB PO SCH ×2 (08:45→21:24)
[2017-03-17] MEDS: Amiodarone TAB* 200 MG PO SCH ×2 (08:45→21:24)
[2017-03-17] MEDS: Enoxaparin(*) 30 MG/0.3 ML SYR SUBCUT SCH (08:46)
[2017-03-17] MEDS: Aspirin EC Low Dose* 81 MG TAB.EC PO SCH (08:46)
[2017-03-17] MEDS: Famotidine TAB* 20 MG PO SCH (08:54)
[2017-03-17] MEDS: Dronabinol CAP* 2.5 MG PO SCH ×3 (08:54→19:33)
--- NOTE | 2017-03-17 10:28 | PN ---
Progress Note - Progress Note Date of Service: 03/17/17 SOAP: Subjective: [] Feeling better. She has no fevers and would like to go home. She is eating well. Bowl movements are regular. No bruising or bleeding. Amiodarone HCl (Cordarone Tab*) 200 mg PO BID [facility] Last Admin: 03/17/17 08:45 Dose: 200 mg Aspirin (Aspirin Ec Low Dose*) 81 mg PO DAILY [facility] Last Admin: 03/17/17 08:46 Dose: 81 mg Diazepam (Valium Tab(*)) 5 mg PO BEDTIME PRN PRN Reason: ANXIETY Docusate Sodium (Colace Cap*) 200 mg PO BEDTIME PRN PRN Reason: CONSTIPATION Dronabinol (Marinol Cap*) 5 mg PO TID [facility] Last Admin: 03/17/17 08:54 Dose: Not Given Enoxaparin Sodium (Lovenox(*)) 30 mg SUBCUT Q24H [facility] Last Admin: 03/17/17 08:46 Dose: 30 mg Famotidine (Pepcid Tab*) 20 mg PO DAILY [facility] Last Admin: 03/17/17 08:54 Dose: Not Given Fentanyl (Duragesic Patch 50 Mcg/Hr*) 50 mcg TRANSDERM Q72H [facility] Last Admin: 03/15/17 17:31 Dose: 50 mcg Cefepime HCl (Maxipime 2 Gm In Dextrose Duplex (*)) 2 gm in 50 mls @ 100 mls/ hr IV 0400,1600 [facility] Last Admin: 03/17/17 04:42 Dose: 100 mls/hr Lorazepam (Ativan Tab(*)) 0.5 mg PO Q8H PRN PRN Reason: ANXIETY Melatonin (Melatonin (Nf)) 3 mg PO BEDTIME PRN PRN Reason: SLEEP Last Admin: 03/13/17 01:19 Dose: 3 mg Ondansetron HCl (Zofran Tab*) 4 mg PO Q4H [facility] Last Admin: 03/17/17 08:46 Dose: Not Given Oxycodone HCl (Roxycodone Tab*) 5 mg PO Q4H PRN PRN Reason: PAIN Pharmacy Profile Note (Fentanyl Patch Check Q Shift) 0 note N/A 0700,1900 [facility] Last Admin: 03/17/17 06:51 Dose: 1 note Polyethylene Glycol/Electrolytes (Miralax*) 17 gm PO DAILY PRN PRN Reason: CONSTIPATION Last Admin: 03/16/17 22:40 Dose: 17 gm Potassium Chloride (Klor Con Er Tab*) 20 meq PO BID [facility] Last Admin: 03/17/17 08:45 Dose: 20 meq Prochlorperazine (Compazine Tab*) 10 mg PO Q6H PRN PRN Reason: NAUSEA Senna (Senokot Tab*) 2 tab PO BID [facility] Last Admin: 03/17/17 08:45 Dose: 2 tab Objective: [] Vital Signs Temp Pulse Resp BP Pulse Ox 97.5 F 79 16 78/56 98 03/17/17 07:47 03/17/17 07:47 03/17/17 07:47 03/17/17 07:47 03/17/17 07:47 HEENT: pale, no thrush CTA RRR S1S2, at 100 today. not in a-fib +BS, NT ND, hyperactive Ext no c/c/e Labs reviewed. Assessment: []66 year old with SSLC with extensive esthela metastasis who presents with fever , a-fib and SOB. HR controlled on Amiodarone and blood counts are slowly rising. Plan: []1. A-fib. Will continue Amiodarone, d/w Dr. Wadsworth dose at home. 2. NF. Continue antibiotics, expect increased WBC to continue, discharge tomorrow. 3. Platelets, RBC are improved, indicated disease response in marrow. 4. SSLC. Hold chemotherapy x 1 week and then treat same dose 5. Fentanyl patch sent in today 50 mcg 6. Will need port next week before cycle 2
[2017-03-18] MEDS: Cefepime 2 GM in Dextrose(*) 2 GM/50 ML BAG IV SCH (05:10)
[2017-03-18] MEDS: Ondansetron TAB* 4 MG PO SCH ×4 (05:24→12:14)
[2017-03-18] MEDS: fentaNYL Patch Check Q Shift 1 NOTE SCH (07:32)
[2017-03-18 09:44] VITALS: BP 94/51
[2017-03-18] MEDS: Potassium Chlor TAB* 10 MEQ TAB.ER PO SCH (09:44)
[2017-03-18] MEDS: Amiodarone TAB* 200 MG PO SCH (09:51)
[2017-03-18] MEDS: Senna TAB PO SCH (09:51)
[2017-03-18] MEDS: Aspirin EC Low Dose* 81 MG TAB.EC PO SCH (09:52)
[2017-03-18] MEDS: Famotidine TAB* 20 MG PO SCH (09:52)
[2017-03-18] MEDS: Enoxaparin(*) 30 MG/0.3 ML SYR SUBCUT SCH (09:53)
[2017-03-18] MEDS: Dronabinol CAP* 2.5 MG PO SCH (09:54)
--- NOTE | 2017-03-18 10:14 | PN ---
Progress Note - Progress Note Date of Service: 03/18/17 SOAP: Subjective: []Feeling well. Was a little light headed moving around this am. Otherwise well. No palpitations, fevers, eating well. Amiodarone HCl (Cordarone Tab*) 200 mg PO BID [facility] Last Admin: 03/18/17 09:51 Dose: 200 mg Aspirin (Aspirin Ec Low Dose*) 81 mg PO DAILY [facility] Last Admin: 03/18/17 09:52 Dose: 81 mg Diazepam (Valium Tab(*)) 5 mg PO BEDTIME PRN PRN Reason: ANXIETY Docusate Sodium (Colace Cap*) 200 mg PO BEDTIME PRN PRN Reason: CONSTIPATION Dronabinol (Marinol Cap*) 5 mg PO TID [facility] Last Admin: 03/18/17 09:54 Dose: Not Given Enoxaparin Sodium (Lovenox(*)) 30 mg SUBCUT Q24H [facility] Last Admin: 03/18/17 09:53 Dose: 30 mg Famotidine (Pepcid Tab*) 20 mg PO DAILY [facility] Last Admin: 03/18/17 09:52 Dose: Not Given Fentanyl (Duragesic Patch 50 Mcg/Hr*) 50 mcg TRANSDERM Q72H [facility] Last Admin: 03/15/17 17:31 Dose: 50 mcg Cefepime HCl (Maxipime 2 Gm In Dextrose Duplex (*)) 2 gm in 50 mls @ 100 mls/ hr IV 0400,1600 [facility] Last Admin: 03/18/17 05:10 Dose: 100 mls/hr Lorazepam (Ativan Tab(*)) 0.5 mg PO Q8H PRN PRN Reason: ANXIETY Melatonin (Melatonin (Nf)) 3 mg PO BEDTIME PRN PRN Reason: SLEEP Last Admin: 03/13/17 01:19 Dose: 3 mg Ondansetron HCl (Zofran Tab*) 4 mg PO Q4H [facility] Last Admin: 03/18/17 08:12 Dose: Not Given Oxycodone HCl (Roxycodone Tab*) 5 mg PO Q4H PRN PRN Reason: PAIN Pharmacy Profile Note (Fentanyl Patch Check Q Shift) 0 note N/A 0700,1900 [facility] Last Admin: 03/18/17 07:32 Dose: 1 note Polyethylene Glycol/Electrolytes (Miralax*) 17 gm PO DAILY PRN PRN Reason: CONSTIPATION Last Admin: 03/16/17 22:40 Dose: 17 gm Potassium Chloride (Klor Con Er Tab*) 20 meq PO BID [facility] Last Admin: 03/18/17 09:44 Dose: 20 meq Prochlorperazine (Compazine Tab*) 10 mg PO Q6H PRN PRN Reason: NAUSEA Senna (Senokot Tab*) 2 tab PO BID [facility] Last Admin: 03/18/17 09:51 Dose: 2 tab Objective: [] Vital Signs Temp Pulse Resp BP Pulse Ox 97.7 F 84 16 94/51 92 03/18/17 08:03 03/18/17 08:03 03/18/17 08:03 03/18/17 08:03 03/18/17 08:03 HEENT: pale, no thrush CTA RRR S1S2, at 100 today. not in a-fib +BS, NT ND, hyperactive Ext no c/c/e CBC pending Assessment: []66 year old with SSLC with extensive esthela metastasis who presents with fever , a-fib and SOB. HR controlled on Amiodarone and blood counts are slowly rising. Plan: []1. A-fib. Will continue Amiodarone 200 mg bid x 7 days then 200 mg daily. Re- start anticoagulation with Lovenox. Will continue at 80 mg daily. 2. NF. CBC pending, plan Augmentin 875 bid x 5 days if ANC remains < 1000. 3. Follow up next Monday and check CBC 4. SSLC. Plan on re-starting chemotherapy on 03/27/17 5. Fentanyl patch sent in today 50 mcg 6. Will need port next week before cycle 2 7. Call my office with any questions after discharge
[2017-03-18 10:25] LABS: Hematocrit 27 % (35-47); Hemoglobin 9.2 g/dl (12.0-16.0); Mean Corpuscular HGB Conc 34 g/dl (31-36); Mean Corpuscular Hemoglobin 31 pg (27-31); Mean Corpuscular Volume 91 fL (80-97); Mean Platelet Volume 7 um3 (7.4-10.4); Platelet Count 276 10^3/ul (150-450); Red Blood Count 2.99 10^6/ul (4.0-5.4); Red Cell Distribution Width 15 % (10.5-15); White Blood Count 1.3 10^3/ul (3.5-10.8)
[2017-03-18 10:28] LABS: ABS Basophils 0 10^3/ul (0-0.2); ABS Eosinophils 0 10^3/ul (0-0.6); ABS Lymphocytes 0.4 10^3/ul (1.0-4.8); ABS Monocytes 0.3 10^3/ul (0-0.8); ABS Neutrophils 0.7 10^3/ul (1.5-7.7); ABS Nucleated RBC 0.1 10^3/ul; Eosinophil % 0.2 % (0-6); Lymphocyte % 27.6 % (25-47); Nucleated Red Blood Cells % 3.8
--- NOTE | 2017-03-19 01:02 | DS ---
DISCHARGE SUMMARY: DATE OF ADMISSION: 03/12/17 DATE OF DISCHARGE: 03/18/17 DISCHARGE DIAGNOSES: 1. Neutropenic fever. 2. Atrial fibrillation with rapid ventricular response. 3. Thrombocytopenia. HOSPITAL COURSE: Presented on week 1 after cycle 1 of carboplatin and etoposide chemotherapy for small cell lung cancer. She had extensive bone marrow infiltration. She came in with fever as well as heart rate over 150. Blood counts showed an ANC of 0 on admission, hemoglobin of 7.2. She was started on broad- spectrum antibiotics and transfused packed red blood cells. Platelets on admission were 44,000 and her Lovenox was held. Dr. Wadsworth consulted and we changed from [place] to amiodarone to adjust her rapid heart rate. She also improved with transfusion and control of her infection. She was continued on IV antibiotics without any fever since the day of admission. Her platelets have markedly improved to 217 for the 144 and they are significantly higher than she had been prior to starting chemotherapy. After 1 unit of packed red blood, her hemoglobin to 8.8 and has continued to rise with her hospitalization. Her ANC has come up bit slowly. She had an ANC of 300 yesterday up from around 215 the day before, CBC today is pending. Given her stable course and increasing ANC, I think it is reasonable to have her go home today. Because ANC remains under 1000, we will plan on outpatient antibiotics for 5 days. We will have her follow up next Monday, on 03/24/17, to check her blood count and will plan restarting chemotherapy on 03/27/17. She will need port placed prior to cycle 2 and will also arrange that on Monday. She should call my office with any questions or concerns after discharge. She had a little bit of lightheadedness walking around this morning, will need to walk again before she goes home. MEDICATIONS ON DISCHARGE: 1. Amiodarone 200 mg p.o. b.i.d. for 7 days, followed by 200 mg daily. 2. Aspirin 81 mg a day. 3. Valium 5 mg at bedtime p.r.n. 4. Colace 400 mg at bedtime. 5. Marinol 5 mg p.o. t.i.d. p.r.n. 6. Famotidine 20 mg p.o. daily. 7. Ondansetron 4 mg q.4 p.o. p.r.n. 8. Oxycodone 5 mg p.o. q.4 p.r.n. 9. MiraLAX p.r.n. 10. Compazine 10 mg q.6 p.r.n. 11. Senna 1 tab p.o. b.i.d. standing 12. Fentanyl 50 mcg patch for q.72 hours. 13. Lovenox 80 mg subcu daily. [id number]/[facility] #: [id number] [facility]
== END 2017-03-18 13:43 | disposition home or self-care (01) | DRG 809 ==
LOC: ED 12:59 → MEDTELE 15:56
PROVIDERS: ADMIT Internal Medicine Hematology & Oncology; ATTEND Internal Medicine Hematology & Oncology
PROC: 30233N1 Transfusion of Nonautologous Red Blood Cells into Peripheral Vein, Percutaneous Approach (ICD-10-PCS; principal; 2017-03-13)
DX: D70.9 Neutropenia, unspecified (principal); C34.90 Malignant neoplasm of unspecified part of unspecified bronchus or lung; C79.52 Secondary malignant neoplasm of bone marrow; D69.6 Thrombocytopenia, unspecified; I48.0 Paroxysmal atrial fibrillation; E86.0 Dehydration; J44.9 Chronic obstructive pulmonary disease, unspecified; E87.6 Hypokalemia; K59.00 Constipation, unspecified; D64.9 Anemia, unspecified; M54.9 Dorsalgia, unspecified; F41.9 Anxiety disorder, unspecified; R50.81 Fever presenting with conditions classified elsewhere; R40.2412 Glasgow coma scale score 13-15, at arrival to emergency department; Z82.3 Family history of stroke; Z90.49 Acquired absence of other specified parts of digestive tract; Z88.2 Allergy status to sulfonamides; Z88.6 Allergy status to analgesic agent; Z91.041 Radiographic dye allergy status; Z98.51 Tubal ligation status; Z82.5 Family history of asthma and other chronic lower respiratory diseases; Z87.891 Personal history of nicotine dependence; Z80.42 Family history of malignant neoplasm of prostate; Z83.1 Family history of other infectious and parasitic diseases; Z79.82 Long term (current) use of aspirin; Z79.02 Long term (current) use of antithrombotics/antiplatelets
CPT/HCPCS: 36415; 71045; 80048; 80053; 81003; 83605; 83735; 84484; 85025; 85060; 85610; 85730; 86850; 86900; 86901; 86922; 87040; 93005; 99222; 99232; 99233; 99239; 99284; A9270-GY; J0692; J1650; J3475; J3480; P9040

== ENCOUNTER 2017-03-30 13:17 | Day surgery (SDC) | payer MEDICARE ==
[~2017-03-30 13:17] MED LIST changes: +Buffered Lidocaine 0.9% SYRIN* 5 ML/SYR SYRINGE INTRADERM ONE; +Famotidine IV* 10 MG/ML 2 ML (20 mg) IV ONE; -Flumazenil* 0.1 MG/ML 5 ML MDV ONE; -Heparin 2 UNITS/ML IVPREMIX* 2,000 ML IV ONE; -Iodixanol* (CONTRAST) 320 MG/ML 100 ML SDV ONE; -Iohexol 350 (CONTRAST) 200 ML MDV IV ONE; -Lidocaine 1% INJ* 10 MG/ML 30 ML SDV ONE; -Midazolam* 1 MG/ML 10 ML VIAL (10 MG) ONE; -Naloxone* 0.4 MG/ML 1 ML VIAL ONE; -fentaNYL* 50 MCG/ML 2 ML VIAL (100 MCG VIAL) ONE
[2017-03-30] MEDS ORDERED: ceFAZolin 2 GM PREMIX (*) 2 GM/50 ML BAG IVPB ONE (13:31)
[2017-03-30] MEDS ORDERED: KETAMINE HCL* 50 MG/ML 10 ML VIAL ONE (14:42)
[2017-03-30] MEDS ORDERED: Midazolam* 1 MG/ML 10 ML VIAL (10 MG) ONE (14:42)
[2017-03-30] MEDS ORDERED: Dexamethasone IV* 4 MG/ML 1 ML (4 MG) ONE (14:42)
[2017-03-30] MEDS ORDERED: Propofol* 10 MG/ML 20 ML BTL IV PUSH ONE (14:42)
[2017-03-30] MEDS ORDERED: fentaNYL* 50 MCG/ML 2 ML VIAL (100 MCG VIAL) ONE (14:42)
[2017-03-30] MEDS ORDERED: Ketorolac INJ* 30 MG/ML 1 ML VIAL ONE (14:42)
[2017-03-30] MEDS ORDERED: Ondansetron INJ* 2 MG/ML VIAL ONE (14:42)
[2017-03-30] MEDS ORDERED: Lidocaine 2% PF * 5 ML VIAL ONE (14:42)
[2017-03-30] MEDS ORDERED: Lidocaine 1% INJ* 10 MG/ML 30 ML SDV ONE (15:03)
[2017-03-30] MEDS ORDERED: EPHEDrine (Pressors)* 50 MG/ML VIAL ONE (15:45)
[2017-03-30] MEDS ORDERED: Naloxone* 0.4 MG/ML 1 ML VIAL IV PRN (16:28)
[2017-03-30] MEDS ORDERED: fentaNYL* 50 MCG/ML 2 ML VIAL (100 MCG VIAL) IV PRN (16:28)
[2017-03-30 16:32] VITALS: BP 94/49
--- NOTE | 2017-03-30 17:12 | RAD ---
HISTORY: Status post chest port placement COMPARISONS: March 12, 2017 VIEWS: 1: frontal portable view of the chest at 4:30 PM FINDINGS: LINES AND TUBES: The right-sided chest port is noted with the tip overlying the cavoatrial junction. An implantable senior litigation paralegal is noted. CARDIOMEDIASTINAL SILHOUETTE: The cardiomediastinal silhouette is normal for portable technique. PLEURA: The costophrenic angles are sharp. No pleural abnormalities are noted. There is no appreciable pneumothorax. LUNG PARENCHYMA: The lungs are clear. ABDOMEN: The upper abdomen is clear. There is no subphrenic gas. BONES AND SOFT TISSUES: No bone or soft tissue abnormalities are noted. IMPRESSION: LINES AND TUBES ABOVE. NO ACTIVE CARDIOPULMONARY DISEASE.
--- NOTE | 2017-03-31 11:42 | OP ---
CC: Heriberto Peterson MD; Dr. Carleen Broussard; Dr. Napoleon Flores; Dr. Maricel Guerrero; Dr. Jonathan Wadsworth. OPERATIVE REPORT: DATE OF OPERATION: 03/30/17 DATE OF : 46 SURGEON: Heriberto Peterson MD JUNIOR DATA ANALYST: None. ANESTHESIOLOGIST: Dr. Zacarias. ANESTHESIA: LMAC anesthesia. PRE-OP DIAGNOSIS: Carcinoma of the lung. POST-OP DIAGNOSIS: Carcinoma of the lung. OPERATIVE PROCEDURE: Placement of right subclavian 8-[place] [employer]. DESCRIPTION OF PROCEDURE: The patient was supine on the operating room table. After adequate intrave nous sedation, compression stockings, and Jose Eduardo Hugger warmer, the right chest and neck region were pr epped with antiseptic, draped in a sterile fashion. Local infiltrative anesthesia was administered a nd approximately 3 cm right subclavian incision was created, inferior pocket was created. Subclavian venipuncture was carried out. Guidewire passed under fluoroscopic guidance. Catheter passed through the peal-away introducer, measured, and cut at 22 cm. Sutured the pocket with 2-0 Prolene. Pocket w as closed with 3-0 and 5-0 Vicryl followed by Steri-Strips. The port is flushed with heparin solutio n. The patient is awakened and brought to recovery in good condition. No complications. No drains. No pathologic specimens. Sponge and instrument counts correct. ESTIMATED BLOOD LOSS: Less than 10 mL. Electrocautery was not utilized during this case. [id number]/[facility] #: [id number]
--- NOTE | 2017-04-03 10:00 | RAD ---
INDICATION: chest port placement COMPARISONS: None relevant TECHNIQUE: Fluoroscopy was provided for a vascular access procedure. Total fluoroscopy time is: 2.8 seconds FINDINGS: Spot images demonstrate a right-sided chest port from a subclavian approach with the tip overlying the cavoatrial junction. IMPRESSION: FLUOROSCOPY WAS PROVIDED FOR A VASCULAR ACCESS PROCEDURE CPT II Codes: 6045F
== END 2017-03-30 16:53 | disposition home or self-care (01) ==
LOC: OR 13:17
PROVIDERS: ATTEND Surgery
DX: C34.11 Malignant neoplasm of upper lobe, right bronchus or lung (principal); I48.0 Paroxysmal atrial fibrillation; Z79.01 Long term (current) use of anticoagulants; Z87.891 Personal history of nicotine dependence; R55 Syncope and collapse; J44.9 Chronic obstructive pulmonary disease, unspecified; D64.9 Anemia, unspecified; D69.6 Thrombocytopenia, unspecified
CPT/HCPCS: 71045; 76000; C1788; J0690; J1100; J1642; J1885; J2250; J2405; J2704; J3010

== ENCOUNTER 2017-06-25 09:54 | Emergency (ER) | payer MEDICARE ==
[2017-06-25 10:46] LABS: ABS Basophils 0 10^3/ul (0-0.2); ABS Eosinophils 0 10^3/ul (0-0.6); ABS Lymphocytes 0.4 10^3/ul (1.0-4.8); ABS Monocytes 0 10^3/ul (0-0.8); ABS Neutrophils 3.7 10^3/ul (1.5-7.7); ABS Nucleated RBC 0 10^3/ul; Eosinophil % 0.3 % (0-6); Hematocrit 31 % (35-47); Hemoglobin 10.5 g/dl (12.0-16.0); Lymphocyte % 8.8 % (25-47); Mean Corpuscular HGB Conc 34 g/dl (31-36); Mean Corpuscular Hemoglobin 34 pg (27-31); Mean Corpuscular Volume 99 fL (80-97); Nucleated Red Blood Cells % 0; Platelet Count 208 10^3/ul (150-450); Red Blood Count 3.12 10^6/ul (4.0-5.4); Red Cell Distribution Width 17 % (10.5-15); White Blood Count 4.1 10^3/ul (3.5-10.8)
[2017-06-25 10:52] LABS: INR 1.17 (0.77-1.02)
[2017-06-25 11:04] LABS: EGFR Non-African American 142.2 (>60)
[2017-06-25] MEDS ORDERED: Magnesium Sulfate 1 GM IV* 1 GM/100 ML BAG IV ONE (12:29)
[2017-06-25] MEDS ORDERED: Potassium Chlor TAB* 20 MEQ TAB.ER PO ONE (12:29)
[2017-06-25] MEDS ORDERED: Amiodarone TAB* 400 MG PO ONE (12:45)
[2017-06-25] MEDS ORDERED: Amiodarone TAB* 200 MG ONE (13:10)
[2017-06-25 13:55] VITALS: BP 94/54
--- NOTE | 2017-06-25 14:12 | ED ---
Ting Faria Elizabeth, scribed for Mamadou Finnegan MD on 06/25/17 at 1022 . Palpitations / Dysrhythmia - HPI Summary HPI Summary: This patient is a 66 year old F presenting to [facility] with a chief complaint of dysrhythmia since this morning. Patient reports that she was sitting and reading a book when her heart began to beat very rapidly. Symptoms aggravated by nothing. Patient takes amiodarone and ASA daily. Patient reports some nausea, which she notes is her normal baseline. Patient denies diaphoresis or vomiting.. Patient has a hx of A-Fib and recently diagnosed with lung cancer. The patient notes that she had a chemo session earlier this week. - History of Current Complaint Chief Complaint: EDDysrhythmPalp Time Seen by Provider: 06/25/17 10:06 Hx Obtained From: Patient Onset/Duration: Sudden Onset, Lasting Minutes Severity Initially: Moderate Severity Currently: Mild Character: Fast Aggravating: Nothing Associated Signs & Symptoms: Nausea - Allergy/Home Medications Allergies/Adverse Reactions: Allergies Allergy/AdvReac Type Severity Reaction Status Date / Time Iodine and Iodide Containing Allergy Unknown Unknown Verified 06/25/17 12:06 Produc Reaction Details NSAIDS (Non-Steroidal Allergy Unknown Verified 06/25/17 12:06 Anti-Inflamma Reaction Details Sulfa (Sulfonamide Allergy Unknown Verified 06/25/17 12:06 Antibiotics) Reaction Details Home Medications: Home Medications Amiodarone TAB* [Cordarone Tab*] 200 mg PO DAILY 06/25/17 [History Confirmed 08/07] Aspirin EC TAB* [Ecotrin EC Low Dose 81 MG*] 81 mg PO DAILY 06/25/17 [History Confirmed 06/25/17] Enoxaparin(*) [Lovenox(*)] 80 mg SUBCUT DAILY 06/25/17 [History Confirmed ] Potassium Chlor TAB* [Klor Con ER TAB*] 20 meq PO DAILY 06/25/17 [History Confirmed 06/25/17] PMH/Surg Hx/FS Hx/Imm Hx Endocrine/Hematology History: Denies: Hx Diabetes Cardiovascular History: Reports: Hx Atrial Fibrillation Denies: Hx Angina, Hx Hypertension, Hx Pacemaker/ICD, Other Cardiovascular Problems/Disorders Respiratory History: Reports: Other Respiratory Problems/Disorders - LUNG CA Denies: Hx Asthma GI History: Reports: Hx Gall Bladder Disease - cholecystectomy Denies: Other GI Disorders History: Denies: Hx Renal Disease Musculoskeletal History: Reports: Hx Arthritis - FINGERS Denies: Other Musculoskeletal History Sensory History: Reports: Hx Contacts or Glasses Denies: Hx Hearing Aid Opthamlomology History: Reports: Hx Contacts or Glasses Neurological History: Denies: Other Neuro Impairments/Disorders Psychiatric History: Reports: Hx Anxiety Denies: Hx Panic Disorder - Cancer History Cancer Type, Location and Year: lung Hx Chemotherapy: Yes Hx Radiation Therapy: No - Surgical History Surgery Procedure, Year, and Place: CHOLECYSTECTOMY. 01/27/15 - [employer] [facility]ORDER- @ [facility] [place]/ DR WADSW[place]TH - WHICH DOWNLOADS EVERY EVENING/NIGHT BUT IS CHECKING ( W/CARDIOLOGY) MORNING OF MRI TO BE SURE IT DID DO DOWNLOAD. TUBAL LIGATION Hx Anesthesia Reactions: No Infectious Disease History: No Infectious Disease History: Denies: Traveled Outside the [place] in Last 30 Days - Family History Known Family History: Positive: Respiratory Disease - father - emphysema, Other - mother - cva - Social History Alcohol Use: None Alcohol Amount: about 3 times a week Hx Substance Use: No Substance Use Type: Reports: None Hx Tobacco Use: Yes Smoking Status (MU): Former Smoker Type: Cigarettes Amount Used/How Often: 1/2 PPD X 40 YEARS Length of Time of Smoking/Using Tobacco: 45 years Have You Smoked in the Last Year: Yes Review of Systems Negative: Skin Diaphoresis Negative: Epistaxis Positive: Palpitations Positive: Nausea. Negative: Vomiting All Other Systems Reviewed And Are Negative: Yes Physical Exam - Summary Physical Exam Summary: Appearance: The patient is well-nourished in no acute distress and in no acute pain. The patient is very thin. Skin: The skin is warm and dry and skin color reflects adequate perfusion. HEENT: The head is normocephalic and atraumatic. The pupils are equal and reactive. The conjunctivae are clear and without drainage. Nares are patent and without drainage. Mouth reveals moist mucous membranes and the throat is without erythema and exudate. The external ears are intact. The ear canals are patent and without drainage. The tympanic membranes are intact. Neck: the neck is supple with full range of motion and non-tender. There are no carotid bruits. There is no neck vein distension. Respiratory: Chest is non-tender. Lungs are clear to auscultation and breath sounds are symmetrical and equal. Cardiovascular: Heart is regular rate and rhythm. There is no murmur or rub auscultated. There is no peripheral edema and pulses are symmetrical and equal. Abdomen: The abdomen is soft and non-tender. There are normal bowel sounds heard in all four quadrants and there is no organomegaly palpated. Musculoskeletal: There is no back tenderness noted. Extremities are non-tender with full range of motion. There is good capillary refill. There is no peripheral edema or calf tenderness elicited. Neurological: Patient is alert and oriented to person, place and time. The patient has symmetrical motor strength in all four extremities. Cranial nerves are grossly intact. Deep tendon reflexes are symmetrical and equal in all four extremities. Psychiatric: The patient has an appropriate affect and does not exhibit any anxiety or depression. Triage Information Reviewed: Yes Vital Signs On Initial Exam: Initial Vitals Temp Pulse Resp BP Pulse Ox 99.6 F 97 20 128/68 98 06/25/17 10:03 06/25/17 10:03 06/25/17 10:03 06/25/17 10:03 06/25/17 10:03 Vital Signs Reviewed: Yes Diagnostics - Vital Signs Vital Signs Temp Pulse Resp BP Pulse Ox 06/25/17 10:03 99.6 F 97 20 128/68 98 - Laboratory Lab Results: Lab Results 06/25/17 06/25/17 06/25/17 Range/Units 10:33 10:33 10:33 WBC 4.1 (3.5-10.8) 10^3/ul RBC 3.12 L (4.0-5.4) 10^6/ul Hgb 10.5 L (12.0-16.0) g/dl Hct 31 L (35-47) % MCV 99 H (80-97) fL MCH 34 H (27-31) pg MCHC 34 (31-36) g/dl RDW 17 H (10.5-15) % Plt Count 208 (150-450) 10^3/ul MPV 7.0 L (7.4-10.4) um3 Neut % (Auto) 89.0 H (38-83) % Lymph % (Auto) 8.8 L (25-47) % [place] % (Auto) 1.2 (0-7) % Eos % (Auto) 0.3 (0-6) % Baso % (Auto) 0.7 (0-2) % Absolute Neuts (auto) 3.7 (1.5-7.7) 10^3/ul Absolute Lymphs (auto) 0.4 L (1.0-4.8) 10^3/ul Absolute Monos (auto) 0 (0-0.8) 10^3/ul Absolute Eos (auto) 0 (0-0.6) 10^3/ul Absolute Basos (auto) 0 (0-0.2) 10^3/ul Absolute Nucleated RBC 0 10^3/ul Nucleated RBC % 0 INR (Anticoag Therapy) 1.17 H (0.77-1.02) D-Dimer, Quantitative < 200 (Less Than 230) ng/mL Sodium 136 L (139-145) mmol/L Potassium 3.3 L (3.5-5.0) mmol/L Chloride 103 (101-111) mmol/L Carbon Dioxide 25 (22-32) mmol/L Anion Gap 8 (2-11) mmol/L BUN 14 (6-24) mg/dL Creatinine 0.44 L (0.51-0.95) mg/dL Est GFR ( Amer) 182.9 (>60) Est GFR (Non-Af Amer) 142.2 (>60) BUN/Creatinine Ratio 31.8 H (8-20) Glucose 148 H (70-100) mg/dL Lactic Acid (0.5-2.0) mmol/L Calcium 9.3 (8.6-10.3) mg/dL Magnesium 1.8 L (1.9-2.7) mg/dL Total Bilirubin 0.60 (0.2-1.0) mg/dL AST 16 (13-39) U/L ALT 18 (7-52) U/L Alkaline Phosphatase 116 H (34-104) U/L Troponin I 0.00 (<0.04) ng/mL Total Protein 6.2 L (6.4-8.9) g/dL Albumin 3.9 (3.2-5.2) g/dL Globulin 2.3 (2-4) g/dL Albumin/Globulin Ratio 1.7 (1-3) TSH 1.63 (0.34-5.60) mcIU/mL 06/25/17 Range/Units 10:33 WBC (3.5-10.8) 10^3/ul RBC (4.0-5.4) 10^6/ul Hgb (12.0-16.0) g/dl Hct (35-47) % MCV (80-97) fL MCH (27-31) pg MCHC (31-36) g/dl RDW (10.5-15) % Plt Count (150-450) 10^3/ul MPV (7.4-10.4) um3 Neut % (Auto) (38-83) % Lymph % (Auto) (25-47) % [place] % (Auto) (0-7) % Eos % (Auto) (0-6) % Baso % (Auto) (0-2) % Absolute Neuts (auto) (1.5-7.7) 10^3/ul Absolute Lymphs (auto) (1.0-4.8) 10^3/ul Absolute Monos (auto) (0-0.8) 10^3/ul Absolute Eos (auto) (0-0.6) 10^3/ul Absolute Basos (auto) (0-0.2) 10^3/ul Absolute Nucleated RBC 10^3/ul Nucleated RBC % INR (Anticoag Therapy) (0.77-1.02) D-Dimer, Quantitative (Less Than 230) ng/mL Sodium (139-145) mmol/L Potassium (3.5-5.0) mmol/L Chloride (101-111) mmol/L Carbon Dioxide (22-32) mmol/L Anion Gap (2-11) mmol/L BUN (6-24) mg/dL Creatinine (0.51-0.95) mg/dL Est GFR ( Amer) (>60) Est GFR (Non-Af Amer) (>60) BUN/Creatinine Ratio (8-20) Glucose (70-100) mg/dL Lactic Acid 1.5 (0.5-2.0) mmol/L Calcium (8.6-10.3) mg/dL Magnesium (1.9-2.7) mg/dL Total Bilirubin (0.2-1.0) mg/dL AST (13-39) U/L ALT (7-52) U/L Alkaline Phosphatase (34-104) U/L Troponin I (<0.04) ng/mL Total Protein (6.4-8.9) g/dL Albumin (3.2-5.2) g/dL Globulin (2-4) g/dL Albumin/Globulin Ratio (1-3) TSH (0.34-5.60) mcIU/mL Result Diagrams: 06/25/17 10:33 06/25/17 10:33 Lab Statement: Any lab studies that have been ordered have been reviewed, and results considered in the medical decision making process. - EKG 10:06 Cardiac Rate: NL - at 91 BPM EKG Rhythm: Sinus Rhythm EKG Interpretation: NSR 10:49 Cardiac Rate: Tachycardia - at 103 BPM EKG Rhythm: Sinus Tachycardia Re-Evaluation - Re-Evaluation first re-eval Re-Evaluation Time: 12:33 Change: Unchanged Comment: Discussed lab results and course of treatment with patient. Course/Dx - Course Course Of Treatment: Ms. Rodriges presented subsequent to an approximately 15 minute episode of racing heart. She has a history of atrial fibrillation and it felt like that. She felt a little shaky but was otherwise fairly asymptomatic during the episode and felt normal on arrival here. She is currently getting chemo and has not been eating well because of nausea although she hasn't had any vomiting or diarrhea. She was kept on the monitor here while labs were obtained. She had a few very short episodes of a-fib here and was found to be low in both potassium and magnesium. I ordered replacement therapy and spoke with Dr. Alvarado who recommended an extra 400 mgs of PO amiodarone. She will F/U with Dr. Wadsworth. - Diagnoses Provider Diagnoses: Atrial fibrillation - Physician Notifications Discussed Care Of Patient With: Velasquez Alvarado Time Discussed With Above Provider: 12:46 Instructed by Provider To: Other - Dr. Alvarado recommended giving the patient oral amiodarone Discharge - Sign-Out/Discharge Documenting (check all that apply): Discharge/Admit/Transfer - Discharge Plan Condition: Stable Disposition: HOME Patient Education Materials: A-fib (Atrial Fibrillation) (ED) Referrals: Jonathan Wadsworth MD [Medical Doctor] - 2 Days Additional Instructions: Follow up with Dr. Wadsworth, structures engineer, in 2-3 days. Return to the emergency department for any new or worsening symptoms. - Billing Disposition and Condition Condition: STABLE Disposition: HOME The documentation as recorded by the Ting galvan Elizabeth accurately reflects the service I personally performed and the decisions made by me, Mamadou Finnegan MD.
== END 2017-06-25 13:58 | disposition home or self-care (01) ==
LOC: ED 09:54
DX: I48.91 Unspecified atrial fibrillation (principal); R11.0 Nausea; R00.2 Palpitations; Z87.891 Personal history of nicotine dependence
CPT/HCPCS: 36415; 80053; 83605; 83735; 84443; 84484; 85025; 85379; 85610; 93005; 96374; 99283; A9270-GY; J1642; J3475